=== PATIENT | male | born 1930 | race Caucasian/White ===

== ENCOUNTER 2016-10-05 12:01 | Emergency (ER) | payer MEDICARE, OTHER ==
[~2016-10-05 12:01] MED LIST: AMLO-61 PO; ASPI81TA85 PO; ATOR1TAB21 PO; BISO5TAB5 PO; JANU25TA PO; LATA5OPD OU; PANT40TA2 PO; SENN-23 PO; TORS20TA2 PO
[2016-10-05] MEDS ORDERED: OXYMETAZOLINE NASAL SPRAY (AFRIN) As Ordered ONE (12:53)
--- NOTE | 2016-10-05 14:48 | CR ---
DATE OF CONSULTATION: 10/05/2016 This is an 86-year-old patient consulted for epistaxis. He has been having issues with nosebleeds for sometime now. He has a known septal perforation that allows him to bleed from both sides of his nose anteriorly. He started bleeding this morning from both sides and was unable to stop it. He presented to the emergency room (ER) where attempts at Merocel packing bilaterally were unsuccessful. He has no history of hypertension. He is on medications for it and his blood pressure has been good. He does take aspirin everyday. PHYSICAL EXAMINATION: On examination, he is in no acute distress. He has bilateral Merocel packs in his nose which are removed. There appears to be some bleeding from the anterior right nostril on the lateral wall, just above the inferior turbinate attachment. First the nose was prepared by using Afrin as a decongestant and Afrin with lidocaine was used to create some anesthesia topically in the nose. All the clot was suctioned. There appeared to be some steady oozing from the right lateral nasal wall anteriorly. Silver nitrate was applied to this area. A Surgicel pack was placed there and this was held in place with a Merocel pack. Another Surgicel pack was turned into a wedge and placed in between the two to tighten up the packing in this area. This seemed to quell most of the bleeding. He did have some posterior oozing which was settling down. He was instructed to stay at bedrest for 24 hours. He will be seen back in the office in three days.
--- NOTE | 2016-10-05 14:49 | EDDOCDS ---
Nurse's Notes [facility] Name: Guilherme Macias Age: 86 yrs Sex: Male : 1930 Arrival Date: 10/05/2016 Time: 12:01 Bed I7 Private MD: Diagnosis: Epistaxis-right Presentation: 10/05 12:10 Presenting complaint: Patient states: pt reports onset of nose bleed at approx 1100 ead this morning, reports hx of nose bleeds. reports "I had a little itch and used a q-tip to touch it.". Adult Sepsis Screening: The patient does not have new or worsening altered mentation. Patient's respiratory rate is less than 22. Systolic blood pressure is greater than 100. Patient has a qSOFA score of 0- Negative Sepsis Screen. Suicide/Homicide risk assessment- the patient denies having any suicidal and/or homicidal ideations and does not present with any other emotional, behavioral or mental health complaints. Status: Patient is not a service cleaner or dependent. Transition of care: patient was not received from another setting of care. 12:10 Acuity: CHLOE Level 3 ead 12:10 Method Of Arrival: Walkin/Carried/Asstd ead Triage Assessment: 12:17 General: Appears in no apparent distress, comfortable, Behavior is appropriate for age, ead cooperative. Pain: Denies pain. Neurological: No deficits noted. EENT: Nares nose clamp in place. pt spitting blood in bag. . Respiratory: Airway is patent Respiratory effort is even, unlabored. Derm: Skin is pink, warm & dry. Historical: - Allergies: no known allergies; - Home Meds: 1. aspirin 81 mg Oral tab once daily 2. vitamin d 2000 IU daily 3. amlodipine-benazepril 10-20 mg oral cap once daily 4. pantoprazole 40 mg oral grps once daily 5. torsemide 20 mg oral tab once daily 6. bisoprolol fumarate 5 mg oral tab 0.5 tab once daily 7. lantaprost 0.005% eye drops nightly 8. proctosal as needed 9. Imodium A-D oral oral as needed 10. senecot-s nightly - PMHx: prostate cancer; jaw cancer; Kidney stones; Atrial Fib; - PSHx: Lithotripsy; Cholecystectomy; Right Knee Replacement; Kidney Stone Surgery; - Social history: Smoking status: Patient states former smoker of tobacco. No barriers to communication noted, The patient speaks fluent Mohawk, Speaks appropriately for age. - Family history: Not pertinent. - : The pt / caregiver states he / she is not on anticoagulants. Home medication list is obtained from the patient. - Exposure Risk Screening:: None identified. Screenin:25 Screening information is obtained from the patient. Fall risk: At risk due to age. dls Assistance ADL's: requires no assistance with activities of daily living. Abuse/DV Screen: The patient / caregiver reports he/she is: not in a situation that causes fear, pain or injury. Nutritional screening: No deficits noted. Advance Directives: Currently, there is no health care proxy. There is no active DNR order. There is no living will. There is no Power of Tower Operator. home support is adequate. Assessment: 13:23 General: First contact with pt who was moved to [facility] from [facility]. Epistaxis controlled with dls nasal clamp, provider inserted bilateral rapid rhino packings pt tolerated well.. 14:15 General: Appears bleeding had persisted despite packing, Dr Encarnacion at bedside and right [facility] nares again packed after silver nitrate. tolerated.. 14:45 General: Appears without active bleeding. reinforced bedrest/. receptive to discharge. [facility] Vital Signs: 12:01 BP 117 / 70; Pulse 96; Resp 18; Temp 96.7(T); Pulse Ox 89% ; Weight 91.63 kg (R); lr2 Height 6 ft. 0 in. (182.88 cm) (R); 13:27 BP 145 / 64; Pulse 92; Resp 20; Temp 96.8; Pulse Ox 92% ; Pain 0/10; jam1 14:45 BP 137 / 89; Pulse 90; Resp 16; Temp 97.3; jmk 12:01 Body Mass Index 27.40 (91.63 kg, 182.88 cm) lr2 Vitals: 12:01 Log In Time: October 05, 2016 at 12:01. lr2 ED Course: 12:01 Patient visited by Irene Fischer. lr2 12:01 Patient moved to Waiting lr2 12:04 Patient moved to Pre E lr2 12:11 Triage Initiated ead 12:24 Patient moved to Triage 2 ar3 12:42 [facility] cc10 12:42 Emmett Olson MD is Attending Physician. cc10 12:42 Patient visited by Eloy Rosario PA-C. cc10 12:42 Patient visited by Eloy Rosario PA-C. cc10 12:59 Patient moved to [facility] 13:11 Patient visited by Eloy Rosario PA-C. cc10 13:25 The patient / caregiver is instructed regarding the plan of care and ED course. dls 14:13 Lenny Encarnacion is Referral Physician. cc10 14:16 Patient visited by Erik Chung,MADYSON. k 14:45 No IV's were initiated during this patient's visit. No procedures done that require jmk assistance. Administered Medications: 12:56 Drug: Oxymetazoline 2 sprays [oxymetazoline 0.05 % nasal spray (2 sprays)] Route: dsf Intranasal; Site: both nares; Order Results: There are currently no results for this order. Outcome: 14:13 Discharge ordered by Provider. cc10 14:45 Discharge Assessment: Patient awake, alert and oriented x 3. No cognitive and/or jmk functional deficits noted. Patient verbalized understanding of disposition instructions. patient administered narcotics - no. The following High Risk Discharge criteria are identified: None. Condition: good. Discharge instructions given to patient, Instructed on discharge instructions, follow up and referral plans. medication usage, Demonstrated understanding of instructions, medications, Pt was receptive of discharge instructions/ teaching. No special radiology studies were completed. Property :Personal belongings accompany Pt. 14:47 Patient left the ED. jmk Signatures: Erik Chung,RN Iman Maya RN Genesis Bhakta, AGRICULTURE INSTRUCTOR AGRICULTURE INSTRUCTOR jam1 Jacki Upton, AGRICULTURE INSTRUCTOR AGRICULTURE INSTRUCTOR ar3 Rosibel AyalaRN Benita DowRN Eloy Freedman PA-C PA-C cc Irene Fischer lr2 MTDD
--- NOTE | 2016-10-05 14:49 | EDDOCDS ---
Physician Documentation [facility] Name: Guilherme Macias Age: 86 yrs Sex: Male : 1930 Arrival Date: 10/05/2016 Time: 12:01 Bed I Private MD: Disposition: 10/05/16 14:13 Discharged to Home/Self Care. Impression: Epistaxis - right. - Condition is Stable. - Discharge Instructions: Nosebleed. - Medication Reconciliation form. - Follow up: Lenny Encarnacion; When: 2 - 3 days; Reason: Wound/Symptom Recheck, Recheck today's complaints, Continuance of care, To establish care. - Problem is new. - Symptoms have improved. - Notes: Strict bedrest. Follow up with the ENT doctor on for removal and recheck. Historical: - Allergies: no known allergies; - Home Meds: 1. aspirin 81 mg Oral tab once daily 2. vitamin d 2000 IU daily 3. amlodipine-benazepril 10-20 mg oral cap once daily 4. pantoprazole 40 mg oral grps once daily 5. torsemide 20 mg oral tab once daily 6. bisoprolol fumarate 5 mg oral tab 0.5 tab once daily 7. lantaprost 0.005% eye drops nightly 8. proctosal as needed 9. Imodium A-D oral oral as needed 10. senecot-s nightly - PMHx: prostate cancer; jaw cancer; Kidney stones; Atrial Fib; - PSHx: Lithotripsy; Cholecystectomy; Right Knee Replacement; Kidney Stone Surgery; - Social history: Smoking status: Patient states former smoker of tobacco. No barriers to communication noted, The patient speaks fluent Estonian, Speaks appropriately for age. - Family history: Not pertinent. - : The pt / caregiver states he / she is not on anticoagulants. Home medication list is obtained from the patient. - Exposure Risk Screening:: None identified. Vital Signs: 10/05 12:01 BP 117 / 70; Pulse 96; Resp 18; Temp 96.7(T); Pulse Ox 89% ; Weight 91.63 kg / 202.01 lr2 lbs (R); Height 6 ft. 0 in. (182.88 cm) (R); 13:27 BP 145 / 64; Pulse 92; Resp 20; Temp 96.8; Pulse Ox 92% ; Pain 0/10; jam1 14:45 BP 137 / 89; Pulse 90; Resp 16; Temp 97.3; jmk 12:01 Body Mass Index 27.40 (91.63 kg, 182.88 cm) lr2 Procedures: 13:11 Epistaxis Treatment: Copious amount of bleeding noted from both nares. Treated using cc10 direct pressure, nasal clamp, Oxymetazoline sprays, anterior packing, with a Rapid Rhino 5.5cm, Bleeding continues. MDM: 12:46 Financial registration complete. lg 12:52 Oxymetazoline [place] 0.05 % 2 sprays Intranasal once ordered. cc10 Administered Medications: 12:56 Drug: Oxymetazoline 2 sprays [oxymetazoline 0.05 % nasal spray (2 sprays)] Route: dsf Intranasal; Site: both nares; Signatures: Erik Chung,RN RN Marcelino Parks, Isaias Reg lg Benita John RN RN ead Coniski, Colin, PA-C PA-Richy cc10 Rosibel Ayala RN dsf MTDD
--- NOTE | 2016-10-07 15:47 | EDDOCDS ---
Physician Documentation [facility] Name: Guilherme Macias Age: 86 yrs Sex: Male : 1930 Arrival Date: 10/05/2016 Time: 12:01 Bed I Private MD: Disposition: 10/05/16 14:13 Discharged to Home/Self Care. Impression: Epistaxis - right. - Condition is Stable. - Discharge Instructions: Nosebleed. - Medication Reconciliation form. - Follow up: Lenny Encarnacion; When: 2 - 3 days; Reason: Wound/Symptom Recheck, Recheck today's complaints, Continuance of care, To establish care. - Problem is new. - Symptoms have improved. - Notes: Strict bedrest. Follow up with the ENT doctor on for removal and recheck. Historical: - Allergies: no known allergies; - Home Meds: 1. aspirin 81 mg Oral tab once daily 2. vitamin d 2000 IU daily 3. amlodipine-benazepril 10-20 mg oral cap once daily 4. pantoprazole 40 mg oral grps once daily 5. torsemide 20 mg oral tab once daily 6. bisoprolol fumarate 5 mg oral tab 0.5 tab once daily 7. lantaprost 0.005% eye drops nightly 8. proctosal as needed 9. Imodium A-D oral oral as needed 10. senecot-s nightly - PMHx: prostate cancer; jaw cancer; Kidney stones; Atrial Fib; - PSHx: Lithotripsy; Cholecystectomy; Right Knee Replacement; Kidney Stone Surgery; - Social history: Smoking status: Patient states former smoker of tobacco. No barriers to communication noted, The patient speaks fluent Telugu, Speaks appropriately for age. - Family history: Not pertinent. - : The pt / caregiver states he / she is not on anticoagulants. Home medication list is obtained from the patient. - Exposure Risk Screening:: None identified. Vital Signs: 10/05 12:01 BP 117 / 70; Pulse 96; Resp 18; Temp 96.7(T); Pulse Ox 89% ; Weight 91.63 kg / 202.01 lr2 lbs (R); Height 6 ft. 0 in. (182.88 cm) (R); 13:27 BP 145 / 64; Pulse 92; Resp 20; Temp 96.8; Pulse Ox 92% ; Pain 0/10; jam1 14:45 BP 137 / 89; Pulse 90; Resp 16; Temp 97.3; jmk 12:01 Body Mass Index 27.40 (91.63 kg, 182.88 cm) lr2 Procedures: 13:11 Epistaxis Treatment: Copious amount of bleeding noted from both nares. Treated using cc10 direct pressure, nasal clamp, Oxymetazoline sprays, anterior packing, with a Rapid Rhino 5.5cm, Bleeding continues. MDM: 12:46 Financial registration complete. lg 12:52 Oxymetazoline [place] 0.05 % 2 sprays Intranasal once ordered. cc10 Administered Medications: 12:56 Drug: Oxymetazoline 2 sprays [oxymetazoline 0.05 % nasal spray (2 sprays)] Route: dsf Intranasal; Site: both nares; Signatures: Erik Chung,RN RN Marcelino Parks, Isaias Reg lg Benita John RN RN ead Coniski, Colin, PA-C PAFred cc10 Rosibel Ayala RN dsf Chart Complete MTDD
--- NOTE | 2016-10-07 15:47 | EDDOCDS ---
Physician Documentation [facility] Name: Guilherme Macias Age: 86 yrs Sex: Male : 1930 Arrival Date: 10/05/2016 Time: 12:01 Bed I Private MD: Disposition: 10/05/16 14:13 Discharged to Home/Self Care. Impression: Epistaxis - right. - Condition is Stable. - Discharge Instructions: Nosebleed. - Medication Reconciliation form. - Follow up: Lenny Encarnacion; When: 2 - 3 days; Reason: Wound/Symptom Recheck, Recheck today's complaints, Continuance of care, To establish care. - Problem is new. - Symptoms have improved. - Notes: Strict bedrest. Follow up with the ENT doctor on for removal and recheck. Historical: - Allergies: no known allergies; - Home Meds: 1. aspirin 81 mg Oral tab once daily 2. vitamin d 2000 IU daily 3. amlodipine-benazepril 10-20 mg oral cap once daily 4. pantoprazole 40 mg oral grps once daily 5. torsemide 20 mg oral tab once daily 6. bisoprolol fumarate 5 mg oral tab 0.5 tab once daily 7. lantaprost 0.005% eye drops nightly 8. proctosal as needed 9. Imodium A-D oral oral as needed 10. senecot-s nightly - PMHx: prostate cancer; jaw cancer; Kidney stones; Atrial Fib; - PSHx: Lithotripsy; Cholecystectomy; Right Knee Replacement; Kidney Stone Surgery; - Social history: Smoking status: Patient states former smoker of tobacco. No barriers to communication noted, The patient speaks fluent Mohawk, Speaks appropriately for age. - Family history: Not pertinent. - : The pt / caregiver states he / she is not on anticoagulants. Home medication list is obtained from the patient. - Exposure Risk Screening:: None identified. Vital Signs: 10/05 12:01 BP 117 / 70; Pulse 96; Resp 18; Temp 96.7(T); Pulse Ox 89% ; Weight 91.63 kg / 202.01 lr2 lbs (R); Height 6 ft. 0 in. (182.88 cm) (R); 13:27 BP 145 / 64; Pulse 92; Resp 20; Temp 96.8; Pulse Ox 92% ; Pain 0/10; jam1 14:45 BP 137 / 89; Pulse 90; Resp 16; Temp 97.3; jmk 12:01 Body Mass Index 27.40 (91.63 kg, 182.88 cm) lr2 Procedures: 13:11 Epistaxis Treatment: Copious amount of bleeding noted from both nares. Treated using cc10 direct pressure, nasal clamp, Oxymetazoline sprays, anterior packing, with a Rapid Rhino 5.5cm, Bleeding continues. MDM: 12:46 Financial registration complete. lg 12:52 Oxymetazoline [place] 0.05 % 2 sprays Intranasal once ordered. cc10 Administered Medications: 12:56 Drug: Oxymetazoline 2 sprays [oxymetazoline 0.05 % nasal spray (2 sprays)] Route: dsf Intranasal; Site: both nares; Signatures: Erik Chung,RN RN Marcelino Parks, Isaias Reg lg Benita John RN RN ead Coniski, Colin, PA-C PAFred cc10 Rosibel Ayala RN dsf Chart Complete MTDD
--- NOTE | 2016-10-07 15:49 | EDDOCDS ---
Nurse's Notes [facility] Name: Guilherme Macias Age: 86 yrs Sex: Male : 1930 Arrival Date: 10/05/2016 Time: 12:01 Bed I7 Private MD: Diagnosis: Epistaxis-right Presentation: 10/05 12:10 Presenting complaint: Patient states: pt reports onset of nose bleed at approx 1100 ead this morning, reports hx of nose bleeds. reports "I had a little itch and used a q-tip to touch it.". Adult Sepsis Screening: The patient does not have new or worsening altered mentation. Patient's respiratory rate is less than 22. Systolic blood pressure is greater than 100. Patient has a qSOFA score of 0- Negative Sepsis Screen. Suicide/Homicide risk assessment- the patient denies having any suicidal and/or homicidal ideations and does not present with any other emotional, behavioral or mental health complaints. Status: Patient is not a service center appraiser or dependent. Transition of care: patient was not received from another setting of care. 12:10 Acuity: CHLOE Level 3 ead 12:10 Method Of Arrival: Walkin/Carried/Asstd ead Triage Assessment: 12:17 General: Appears in no apparent distress, comfortable, Behavior is appropriate for age, ead cooperative. Pain: Denies pain. Neurological: No deficits noted. EENT: Nares nose clamp in place. pt spitting blood in bag. . Respiratory: Airway is patent Respiratory effort is even, unlabored. Derm: Skin is pink, warm & dry. Historical: - Allergies: no known allergies; - Home Meds: 1. aspirin 81 mg Oral tab once daily 2. vitamin d 2000 IU daily 3. amlodipine-benazepril 10-20 mg oral cap once daily 4. pantoprazole 40 mg oral grps once daily 5. torsemide 20 mg oral tab once daily 6. bisoprolol fumarate 5 mg oral tab 0.5 tab once daily 7. lantaprost 0.005% eye drops nightly 8. proctosal as needed 9. Imodium A-D oral oral as needed 10. senecot-s nightly - PMHx: prostate cancer; jaw cancer; Kidney stones; Atrial Fib; - PSHx: Lithotripsy; Cholecystectomy; Right Knee Replacement; Kidney Stone Surgery; - Social history: Smoking status: Patient states former smoker of tobacco. No barriers to communication noted, The patient speaks fluent Belarusian, Speaks appropriately for age. - Family history: Not pertinent. - : The pt / caregiver states he / she is not on anticoagulants. Home medication list is obtained from the patient. - Exposure Risk Screening:: None identified. Screenin:25 Screening information is obtained from the patient. Fall risk: At risk due to age. dls Assistance ADL's: requires no assistance with activities of daily living. Abuse/DV Screen: The patient / caregiver reports he/she is: not in a situation that causes fear, pain or injury. Nutritional screening: No deficits noted. Advance Directives: Currently, there is no health care proxy. There is no active DNR order. There is no living will. There is no Power of Supervisor Coffee. home support is adequate. Assessment: 13:23 General: First contact with pt who was moved to [facility] from [facility]. Epistaxis controlled with dls nasal clamp, provider inserted bilateral rapid rhino packings pt tolerated well.. 14:15 General: Appears bleeding had persisted despite packing, Dr Encarnacion at bedside and right [facility] nares again packed after silver nitrate. tolerated.. 14:45 General: Appears without active bleeding. reinforced bedrest/. receptive to discharge. [facility] Vital Signs: 12:01 BP 117 / 70; Pulse 96; Resp 18; Temp 96.7(T); Pulse Ox 89% ; Weight 91.63 kg (R); lr2 Height 6 ft. 0 in. (182.88 cm) (R); 13:27 BP 145 / 64; Pulse 92; Resp 20; Temp 96.8; Pulse Ox 92% ; Pain 0/10; jam1 14:45 BP 137 / 89; Pulse 90; Resp 16; Temp 97.3; jmk 12:01 Body Mass Index 27.40 (91.63 kg, 182.88 cm) lr2 Vitals: 12:01 Log In Time: October 05, 2016 at 12:01. lr2 ED Course: 12:01 Patient visited by Irene Fischer. lr2 12:01 Patient moved to Waiting lr2 12:04 Patient moved to Pre E lr2 12:11 Triage Initiated ead 12:24 Patient moved to Triage 2 ar3 12:42 Eloy [facility]-C [facility] cc10 12:42 Emmett Olson MD is Attending Physician. cc10 12:42 Patient visited by Eloy Rosario PA-C. cc10 12:42 Patient visited by Eloy Rosario PA-C. cc10 12:59 Patient moved to [facility] 13:11 Patient visited by Eloy Rosario PA-C. cc10 13:25 The patient / caregiver is instructed regarding the plan of care and ED course. dls 14:13 Lenny Encarnacion is Referral Physician. cc10 14:16 Patient visited by Erik Chung,MADYSON. k 14:45 No IV's were initiated during this patient's visit. No procedures done that require jmk assistance. Administered Medications: 12:56 Drug: Oxymetazoline 2 sprays [oxymetazoline 0.05 % nasal spray (2 sprays)] Route: dsf Intranasal; Site: both nares; Order Results: There are currently no results for this order. Outcome: 14:13 Discharge ordered by Provider. cc10 14:45 Discharge Assessment: Patient awake, alert and oriented x 3. No cognitive and/or jmk functional deficits noted. Patient verbalized understanding of disposition instructions. patient administered narcotics - no. The following High Risk Discharge criteria are identified: None. Condition: good. Discharge instructions given to patient, Instructed on discharge instructions, follow up and referral plans. medication usage, Demonstrated understanding of instructions, medications, Pt was receptive of discharge instructions/ teaching. No special radiology studies were completed. Property :Personal belongings accompany Pt. 14:47 Patient left the ED. jmk Signatures: Erik Chung,RN Iman Maya RN Genesis Bhakta, HOMEOWNER ASSOCIATION MANAGER HOMEOWNER ASSOCIATION MANAGER jam1 Jacki Upton, HOMEOWNER ASSOCIATION MANAGER HOMEOWNER ASSOCIATION MANAGER ar3 Rosibel AyalaRN Benita DowRN Eloy Freedman PA-C PA-C cc Irene Fischer lr2 Chart Complete MTDD
== END 2016-10-05 14:47 | disposition home or self-care (01) ==
LOC: M ED 12:01
DX: R04.0 Epistaxis (principal); C61 Malignant neoplasm of prostate; C76.0 Malignant neoplasm of head, face and neck; I48.91 Unspecified atrial fibrillation; Z96.651 Presence of right artificial knee joint; Z87.891 Personal history of nicotine dependence; Z79.82 Long term (current) use of aspirin; Z79.899 Other long term (current) drug therapy

== ENCOUNTER → 2017-01-01 | Outpatient (REF) | payer MEDICARE, OTHER | LOC: M LAB REF 16:23 | PROVIDERS: ATTEND Nurse Practitioner Adult Health | DX: E21.0 Primary hyperparathyroidism (principal) ==

== ENCOUNTER 2017-08-12 11:50 | Inpatient (IN) | payer MEDICARE, OTHER ==
[2017-08-12 12:20] LABS: BASO # 0.1 10^3/uL (0.0-0.2); BASO % 0.2 % (0.0-1.0); HEMATOCRIT 33.7 % (42.0-52.0); HEMOGLOBIN 11.4 g/dl (14.0-18.0); IMMATURE GRANULOCYTE # 0.4 10^3/uL (0-0); IMMATURE GRANULOCYTE % 1.1 % (0-0); LYMPH # 0.6 10^3/uL (1.5-4.5); LYMPH % 1.8 % (24.0-44.0); MEAN CORPUSCULAR HEMOGLOBIN 32.9 pg (27.0-33.0); MEAN CORPUSCULAR HGB CONC 33.8 g/dl (32.0-36.5); MEAN CORPUSCULAR VOLUME 97.1 fl (80.0-96.0); MONO % 7.5 % (0.0-5.0); NEUTROPHILS % 89.4 % (36.0-66.0); PLATELET COUNT, AUTOMATED 250 10^3/uL (150-450); RED BLOOD COUNT 3.47 10^6/uL (4.30-6.10); RED CELL DISTRIBUTION WIDTH 13.6 % (11.5-14.5); VENOUS BASE EXCESS -1.5 (-2.0-2.0); VENOUS HCO3 21.7 MEQ/L (23.0-27.0); VENOUS O2 SATURATION 95.3 % (60.0-80.0); VENOUS PARTIAL PRESSURE O2 75.9 mmHg (30.0-50.0); VENOUS PH 7.449 UNITS (7.330-7.430); VENOUS STANDARD HCO3 23.1 MEQ/L; VENOUS TOTAL CO2 22.7 MEQ/L (24.0-28.0)
[2017-08-12 12:35] LABS: MONO # 2.5 10^3/uL (0.0-0.8); NEUTROPHILS # 29.4 10^3/uL (1.8-7.7); POS COUNT POS FLAG; POSITIVE DIFF POS FLAG; WHITE BLOOD COUNT 32.9 10^3/uL (4.0-10.0)
[2017-08-12 12:37] LABS: AMMONIA 18 uMOL/L (<32)
[2017-08-12 13:00] LABS: OSMOLALITY SERUM 308 MOSM/KG (280-301)
[2017-08-12 13:17] LABS: ALBUMIN 2.3 GM/DL (3.2-5.2); ALBUMIN/GLOBULIN RATIO 0.62 (1.00-1.93); ALKALINE PHOSPHATASE 94 U/L (45-117); ALT/SGPT 19 U/L (12-78); ANION GAP 11 MEQ/L (8-16); AST/SGOT 14 U/L (7-37); BILIRUBIN,DIRECT 0.1 MG/DL (0.0-0.2); BILIRUBIN,TOTAL 0.5 MG/DL (0.2-1.0); BLOOD UREA NITROGEN 56 MG/DL (7-18); CALCIUM LEVEL 9.8 MG/DL (8.8-10.2); CARBON DIOXIDE LEVEL 25 MEQ/L (21-32); CHLORIDE LEVEL 96 MEQ/L (98-107); CPK CREATINE PHOSPHOKINASE 17 U/L (39-308); CREATININE FOR GFR 1.88 MG/DL (0.70-1.30); GLOMERULAR FILTRATION RATE 36.4 (>35); GLUCOSE, FASTING 370 MG/DL (83-110); POTASSIUM SERUM 4.7 MEQ/L (3.5-5.1); SODIUM LEVEL 132 MEQ/L (136-145); TROPONIN I 0.08 NG/ML (< 0.10)
[2017-08-12] MEDS: MOXIFLOXACIN HCL 400 MG in APPROPRIATE DILUENT 1 EA IV (13:17)
[2017-08-12] MEDS: ONDANSETRON 4MG/2ML VIAL (J2405) IV (13:17)
[2017-08-12 13:23] LABS: MB/CK RELATIVE INDEX 5.88 (< OR =4)
[2017-08-12 13:37] LABS: SALICYLATE LEVEL < 1.7 MG/DL (5.0-30.0)
[2017-08-12 13:37] LABS: ACETAMINOPHEN LEVEL < 2.0 UG/ML (10.0-30.0)
[2017-08-12] MEDS: NS 1,000 ML IV ×3 (14:26→17:30)
[2017-08-12] MEDS ORDERED: IPRATROPIUM 0.5MG/ALBUTEROL 2.5MG INH SOL UD 3ML (DUONEB)(J7620) NEB (16:00)
[2017-08-12 16:40] LABS: LACTIC ACID SEPSIS PROTOCOL 5.1 MMOL/L (0.4-2.0)
[2017-08-12 16:50] LABS: APPEARANCE, URINE CLOUDY (CLEAR); BACTERIA, URINE AUTO 3+ (NEGATIVE); BILIRUBIN, URINE AUTO NEGATIVE (NEGATIVE); BLOOD, URINE BLOOD 3+ (NEGATIVE); COLOR, URINE YELLOW (YELLOW); GLUCOSE, URINE (UA) AUTO 1+ mg/dL (NEGATIVE); KETONE, URINE AUTO NEGATIVE (NEGATIVE); LEUKOCYTE ESTERASE, URINE AUTO 3+ (NEGATIVE); NITRITE, URINE AUTO POSITIVE (NEGATIVE); PROTEIN, URINE AUTO 2+ mg/dL (NEGATIVE); RBC, URINE AUTO 80 /HPF (0-3); SPECIFIC GRAVITY URINE AUTO 1.011 (1.002-1.035); SQUAMOUS EPITHELIAL CELL UR AU 0 /HPF (0-6); UROBILINOGEN, URINE AUTO 0.2 mg/dL (0.0-2.0); WBC, URINE AUTO TNTC /HPF (0-3)
[2017-08-12] MEDS ORDERED: PIPERACILLIN/TAZOBACTAM SOD 3.375 GM in APPROPRIATE DILUENT 1 EA IV (17:00)
[2017-08-12] MEDS: VANCOMYCIN HCL 1,000 MG, VIAL MATE ADAPTER 1 EACH in D5W 250 ML IV (18:37)
[2017-08-12] MEDS ORDERED: PIPERACILLIN/TAZOBACTAM SOD 2.25 GM in APPROPRIATE DILUENT 1 EA IV (20:00)
[2017-08-12 20:19] LABS: CPK CREATINE PHOSPHOKINASE 18 U/L (39-308); MB/CK RELATIVE INDEX 5.55 (< OR =4)
[2017-08-12 21:00] LABS: REASON FOR REVIEW COMPREHENSIVE REVIEW; SLIDE REVIEW Report; SOURCE PERIPHERAL SMEAR
[2017-08-12] MEDS ORDERED: APIXABAN 5 MG TAB (ELIQUIS) PEG (21:00)
[2017-08-12] MEDS ORDERED: APIXABAN 5 MG TAB (ELIQUIS) PO (21:00)
[2017-08-12] MEDS: LATANOPROST 0.005% OPHTH SOLN 2.5 ML OU (21:00)
[2017-08-12] MEDS: LACTOBACILLUS ACIDOPHILUS CAP (BACID) PEG (21:00)
[2017-08-12] MEDS: VANCOMYCIN HCL 500 MG in D5W MINI-BAG PLUS 100 ML IV (21:06)
[2017-08-12] MEDS: IPRATROPIUM 0.5MG/ALBUTEROL 2.5MG INH SOL UD 3ML (DUONEB)(J7620) NEB (23:40)
[2017-08-13] MEDS: APIXABAN 2.5 MG TAB (ELIQUIS) PEG ×3 (00:36→21:26)
[2017-08-13] MEDS: PIPERACILLIN/TAZOBACTAM SOD 2.25 GM in APPROPRIATE DILUENT 1 EA IV ×5 (01:38→23:29)
[2017-08-13] MEDS: IPRATROPIUM 0.5MG/ALBUTEROL 2.5MG INH SOL UD 3ML (DUONEB)(J7620) NEB ×4 (02:00→20:52)
[2017-08-13 02:04] LABS: CPK CREATINE PHOSPHOKINASE 22 U/L (39-308); MB/CK RELATIVE INDEX 4.54 (< OR =4)
[2017-08-13] MEDS: NS 1,000 ML IV ×3 (03:56→21:27)
[2017-08-13 05:47] LABS: BASO % 0.2 % (0.0-1.0); EOS % 0.1 % (0.0-3.0); HEMATOCRIT 29.9 % (42.0-52.0); HEMOGLOBIN 9.9 g/dl (14.0-18.0); IMMATURE GRANULOCYTE # 0.1 10^3/uL (0-0); IMMATURE GRANULOCYTE % 0.7 % (0-0); LYMPH # 0.6 10^3/uL (1.5-4.5); LYMPH % 3.4 % (24.0-44.0); MEAN CORPUSCULAR HEMOGLOBIN 32.2 pg (27.0-33.0); MEAN CORPUSCULAR HGB CONC 33.1 g/dl (32.0-36.5); MEAN CORPUSCULAR VOLUME 97.4 fl (80.0-96.0); MONO # 1.9 10^3/uL (0.0-0.8); MONO % 10.4 % (0.0-5.0); NEUTROPHILS % 85.2 % (36.0-66.0); PLATELET COUNT, AUTOMATED 222 10^3/uL (150-450); RED BLOOD COUNT 3.07 10^6/uL (4.30-6.10); RED CELL DISTRIBUTION WIDTH 13.5 % (11.5-14.5); WHITE BLOOD COUNT 18.7 10^3/uL (4.0-10.0)
[2017-08-13] MEDS: LEVOTHYROXINE 50MCG TABLET (0.05MG) PEG (06:03)
[2017-08-13 06:22] LABS: ALBUMIN 2.1 GM/DL (3.2-5.2); ALBUMIN/GLOBULIN RATIO 0.68 (1.00-1.93); ALKALINE PHOSPHATASE 89 U/L (45-117); ALT/SGPT 18 U/L (12-78); ANION GAP 8 MEQ/L (8-16); AST/SGOT 15 U/L (7-37); BILIRUBIN,TOTAL 0.2 MG/DL (0.2-1.0); BLOOD UREA NITROGEN 57 MG/DL (7-18); CALCIUM LEVEL 9.3 MG/DL (8.8-10.2); CARBON DIOXIDE LEVEL 26 MEQ/L (21-32); CHLORIDE LEVEL 106 MEQ/L (98-107); CREATININE FOR GFR 1.54 MG/DL (0.70-1.30); FREE THYROXINE INDEX 2.3 % (1.4-3.8); GLOMERULAR FILTRATION RATE 45.8 (>35); GLUCOSE, FASTING 261 MG/DL (83-110); MAGNESIUM LEVEL 2.1 MG/DL (1.8-2.4); POTASSIUM SERUM 4.2 MEQ/L (3.5-5.1); SODIUM LEVEL 140 MEQ/L (136-145); T UPTAKE 39 % (33-40); THYROXINE (T4) 5.8 UG/DL (4.5-12.0); TOTAL PROTEIN 5.2 GM/DL (6.4-8.2)
[2017-08-13] MEDS: TIOTROPIUM INHALER/CAPSULE (SPIRIVA) INH ×2 (08:00→09:00)
[2017-08-13 08:28] LABS: ERYTHROCYTE SEDIMENTATION RATE 70 mm/hr (0-30)
[2017-08-13] MEDS ORDERED: LEVOTHYROXINE 50MCG TABLET (0.05MG) PO (09:00)
[2017-08-13] MEDS ORDERED: SENNA 8.6 MG TAB (SENOKOT) PEG (09:00)
[2017-08-13] MEDS: LACTOBACILLUS ACIDOPHILUS CAP (BACID) PEG ×3 (09:25→21:26)
[2017-08-13] MEDS: FLUoxetine 20 MG CAP PEG (09:25)
[2017-08-13] MEDS: METOPROLOL SUCC *XL* 25MG TAB (TopROL *XL*) PO (09:29)
[2017-08-13 10:52] LABS: CPK CREATINE PHOSPHOKINASE 25 U/L (39-308)
[2017-08-13] MEDS: VANCOMYCIN HCL 1,000 MG, VIAL MATE ADAPTER 1 EACH in D5W 250 ML IV (17:55)
[2017-08-13] MEDS: SENNA 8.6 MG TAB (SENOKOT) PEG (21:26)
[2017-08-13] MEDS: LATANOPROST 0.005% OPHTH SOLN 2.5 ML OU (21:27)
[2017-08-14] MEDS: IPRATROPIUM 0.5MG/ALBUTEROL 2.5MG INH SOL UD 3ML (DUONEB)(J7620) NEB ×5 (01:23→21:24)
[2017-08-14 04:07] LABS: BASO % 0.3 % (0.0-1.0); EOS # 0.1 10^3/uL (0.0-0.50); EOS % 0.9 % (0.0-3.0); HEMATOCRIT 28.8 % (42.0-52.0); HEMOGLOBIN 9.5 g/dl (14.0-18.0); IMMATURE GRANULOCYTE # 0.1 10^3/uL (0-0); IMMATURE GRANULOCYTE % 0.8 % (0-0); LYMPH # 0.7 10^3/uL (1.5-4.5); LYMPH % 4.7 % (24.0-44.0); MEAN CORPUSCULAR HEMOGLOBIN 32.4 pg (27.0-33.0); MEAN CORPUSCULAR VOLUME 98.3 fl (80.0-96.0); MONO # 1.8 10^3/uL (0.0-0.8); MONO % 12.3 % (0.0-5.0); NEUTROPHILS # 12.1 10^3/uL (1.8-7.7); PLATELET COUNT, AUTOMATED 201 10^3/uL (150-450); RED BLOOD COUNT 2.93 10^6/uL (4.30-6.10); RED CELL DISTRIBUTION WIDTH 13.4 % (11.5-14.5)
[2017-08-14 04:34] LABS: ALBUMIN/GLOBULIN RATIO 0.51 (1.00-1.93); ALKALINE PHOSPHATASE 89 U/L (45-117); ALT/SGPT 19 U/L (12-78); ANION GAP 6 MEQ/L (8-16); AST/SGOT 16 U/L (7-37); BILIRUBIN,TOTAL 0.2 MG/DL (0.2-1.0); BLOOD UREA NITROGEN 48 MG/DL (7-18); CALCIUM LEVEL 9.8 MG/DL (8.8-10.2); CARBON DIOXIDE LEVEL 27 MEQ/L (21-32); CHLORIDE LEVEL 107 MEQ/L (98-107); CREATININE FOR GFR 1.12 MG/DL (0.70-1.30); GLOMERULAR FILTRATION RATE > 60.0 (>35); GLUCOSE, FASTING 194 MG/DL (83-110); POTASSIUM SERUM 3.9 MEQ/L (3.5-5.1); SODIUM LEVEL 140 MEQ/L (136-145); TOTAL PROTEIN 5.9 GM/DL (6.4-8.2)
[2017-08-14] MEDS: PIPERACILLIN/TAZOBACTAM SOD 2.25 GM in APPROPRIATE DILUENT 1 EA IV ×3 (05:13→18:00)
[2017-08-14] MEDS: LEVOTHYROXINE 50MCG TABLET (0.05MG) PEG (05:13)
[2017-08-14] MEDS: TIOTROPIUM INHALER/CAPSULE (SPIRIVA) INH (08:27)
[2017-08-14] MEDS: METOPROLOL SUCC *XL* 25MG TAB (TopROL *XL*) PO (09:00)
[2017-08-14] MEDS: LACTOBACILLUS ACIDOPHILUS CAP (BACID) PEG ×3 (10:06→22:10)
[2017-08-14] MEDS: APIXABAN 2.5 MG TAB (ELIQUIS) PEG ×2 (10:07→22:10)
[2017-08-14] MEDS: FLUoxetine 20 MG CAP PEG (10:07)
[2017-08-14] MEDS: VANCOMYCIN HCL 1,000 MG, VIAL MATE ADAPTER 1 EACH in D5W 250 ML IV (18:25)
[2017-08-14] MEDS: FUROSEMIDE 20 MG/2 ML VIAL (J1940) IV (22:10)
[2017-08-15] MEDS: LATANOPROST 0.005% OPHTH SOLN 2.5 ML OU ×2 (00:27→21:36)
[2017-08-15] MEDS: PIPERACILLIN/TAZOBACTAM SOD 2.25 GM in APPROPRIATE DILUENT 1 EA IV ×2 (00:27→05:38)
[2017-08-15] MEDS: FUROSEMIDE 20 MG/2 ML VIAL (J1940) IV (01:19)
[2017-08-15] MEDS: IPRATROPIUM 0.5MG/ALBUTEROL 2.5MG INH SOL UD 3ML (DUONEB)(J7620) NEB ×4 (02:21→20:34)
[2017-08-15 05:34] LABS: BASO % 0.3 % (0.0-1.0); EOS # 0.1 10^3/uL (0.0-0.50); EOS % 0.4 % (0.0-3.0); HEMATOCRIT 30.3 % (42.0-52.0); HEMOGLOBIN 9.8 g/dl (14.0-18.0); IMMATURE GRANULOCYTE # 0.1 10^3/uL (0-0); IMMATURE GRANULOCYTE % 0.8 % (0-0); LYMPH # 0.6 10^3/uL (1.5-4.5); LYMPH % 3.9 % (24.0-44.0); MEAN CORPUSCULAR HGB CONC 32.3 g/dl (32.0-36.5); MONO # 1.4 10^3/uL (0.0-0.8); MONO % 10.1 % (0.0-5.0); NEUTROPHILS % 84.5 % (36.0-66.0); PLATELET COUNT, AUTOMATED 223 10^3/uL (150-450); RED BLOOD COUNT 3.06 10^6/uL (4.30-6.10); RED CELL DISTRIBUTION WIDTH 13.5 % (11.5-14.5); WHITE BLOOD COUNT 14.2 10^3/uL (4.0-10.0)
[2017-08-15] MEDS: LEVOTHYROXINE 50MCG TABLET (0.05MG) PEG (05:38)
[2017-08-15 05:50] LABS: ALBUMIN 2.1 GM/DL (3.2-5.2); ALKALINE PHOSPHATASE 97 U/L (45-117); ALT/SGPT 21 U/L (12-78); ANION GAP 9 MEQ/L (8-16); AST/SGOT 22 U/L (7-37); BILIRUBIN,TOTAL 0.4 MG/DL (0.2-1.0); BLOOD UREA NITROGEN 38 MG/DL (7-18); CALCIUM LEVEL 9.5 MG/DL (8.8-10.2); CARBON DIOXIDE LEVEL 26 MEQ/L (21-32); CHLORIDE LEVEL 106 MEQ/L (98-107); CREATININE FOR GFR 0.99 MG/DL (0.70-1.30); GLOMERULAR FILTRATION RATE > 60.0 (>35); GLUCOSE, FASTING 229 MG/DL (83-110); POTASSIUM SERUM 3.6 MEQ/L (3.5-5.1); SODIUM LEVEL 141 MEQ/L (136-145); TOTAL PROTEIN 6.3 GM/DL (6.4-8.2)
[2017-08-15] MEDS: TIOTROPIUM INHALER/CAPSULE (SPIRIVA) INH (09:00)
[2017-08-15] MEDS: FLUoxetine 20 MG CAP PEG (09:00)
[2017-08-15] MEDS: LACTOBACILLUS ACIDOPHILUS CAP (BACID) PEG ×3 (09:31→21:37)
[2017-08-15] MEDS: TORSEMIDE 20 MG TAB PO (09:32)
[2017-08-15] MEDS: METOPROLOL SUCC *XL* 25MG TAB (TopROL *XL*) PO (09:32)
[2017-08-15] MEDS: APIXABAN 2.5 MG TAB (ELIQUIS) PEG ×2 (09:32→21:37)
[2017-08-15] MEDS: CEFTRIAXONE SOD 1 GM in APPROPRIATE DILUENT 1 EA IV ×2 (11:59→23:49)
[2017-08-15] MEDS: guaiFENesin 200 MG TAB PO ×2 (11:59→21:37)
[2017-08-15] MEDS: SENNA 8.6 MG TAB (SENOKOT) PEG (21:37)
[2017-08-16] MEDS: FUROSEMIDE 20 MG/2 ML VIAL (J1940) IV (01:06)
[2017-08-16] MEDS: IPRATROPIUM 0.5MG/ALBUTEROL 2.5MG INH SOL UD 3ML (DUONEB)(J7620) NEB ×4 (01:13→20:22)
[2017-08-16 02:27] LABS: ABG BASE EXCESS 1.5 (-2.0-2.0); ABG HCO3 25.1 MEQ/L (22.0-26.0); ABG O2 SATURATION 90.2 % (95.0-99.0); ABG PARTIAL PRESSURE CO2 35.9 mmHg (35.0-45.0); ABG PARTIAL PRESSURE O2 55.7 mmHg (75.0-100.0); ABG STANDARD HCO3 25.6 MEQ/L (22.0-26.0); ABG TOTAL CO2 26.2 MEQ/L (23.0-31.0); ABG pH (ARTERIAL) 7.462 UNITS (7.350-7.450)
[2017-08-16] MEDS: PIPERACILLIN/TAZOBACTAM SOD 3.375 GM in APPROPRIATE DILUENT 1 EA IV ×4 (04:40→21:15)
[2017-08-16 05:08] LABS: BASO % 0.2 % (0.0-1.0); EOS % 0.2 % (0.0-3.0); HEMATOCRIT 30.5 % (42.0-52.0); IMMATURE GRANULOCYTE # 0.2 10^3/uL (0-0); LYMPH # 0.6 10^3/uL (1.5-4.5); LYMPH % 3.3 % (24.0-44.0); MEAN CORPUSCULAR HEMOGLOBIN 32.4 pg (27.0-33.0); MEAN CORPUSCULAR HGB CONC 32.8 g/dl (32.0-36.5); MEAN CORPUSCULAR VOLUME 98.7 fl (80.0-96.0); MONO # 1.7 10^3/uL (0.0-0.8); MONO % 9.6 % (0.0-5.0); NEUTROPHILS # 15.3 10^3/uL (1.8-7.7); NEUTROPHILS % 85.7 % (36.0-66.0); PLATELET COUNT, AUTOMATED 242 10^3/uL (150-450); RED BLOOD COUNT 3.09 10^6/uL (4.30-6.10); RED CELL DISTRIBUTION WIDTH 13.4 % (11.5-14.5); WHITE BLOOD COUNT 17.8 10^3/uL (4.0-10.0)
[2017-08-16 05:30] LABS: ALBUMIN/GLOBULIN RATIO 0.47 (1.00-1.93); ALKALINE PHOSPHATASE 113 U/L (45-117); ALT/SGPT 24 U/L (12-78); ANION GAP 9 MEQ/L (8-16); AST/SGOT 29 U/L (7-37); BILIRUBIN,TOTAL 0.3 MG/DL (0.2-1.0); BLOOD UREA NITROGEN 40 MG/DL (7-18); CALCIUM LEVEL 10.1 MG/DL (8.8-10.2); CARBON DIOXIDE LEVEL 28 MEQ/L (21-32); CHLORIDE LEVEL 104 MEQ/L (98-107); CREATININE FOR GFR 0.94 MG/DL (0.70-1.30); GLOMERULAR FILTRATION RATE > 60.0 (>35); GLUCOSE, FASTING 250 MG/DL (83-110); MAGNESIUM LEVEL 1.8 MG/DL (1.8-2.4); POTASSIUM SERUM 3.4 MEQ/L (3.5-5.1); SODIUM LEVEL 141 MEQ/L (136-145); TOTAL PROTEIN 6.3 GM/DL (6.4-8.2)
[2017-08-16 05:31] LABS: ERYTHROCYTE SEDIMENTATION RATE 107 mm/hr (0-30)
[2017-08-16] MEDS: LEVOTHYROXINE 50MCG TABLET (0.05MG) PEG (06:32)
[2017-08-16 07:06] LABS: CPK CREATINE PHOSPHOKINASE 46 U/L (39-308); MB/CK RELATIVE INDEX 2.17 (< OR =4); TROPONIN I 0.15 NG/ML (< 0.10)
[2017-08-16] MEDS: TIOTROPIUM INHALER/CAPSULE (SPIRIVA) INH (08:22)
[2017-08-16] MEDS ORDERED: POTASSIUM CHLORIDE 10 MEQ SR TABLET PO (10:00)
[2017-08-16] MEDS: METOPROLOL TART 12.5 MG PER 1/2 TAB PO ×2 (11:43→21:15)
[2017-08-16] MEDS: FLUoxetine 20 MG CAP PEG (11:44)
[2017-08-16] MEDS: guaiFENesin 200 MG TAB PO (11:45)
[2017-08-16] MEDS: TORSEMIDE 20 MG TAB PO (11:45)
[2017-08-16] MEDS: LACTOBACILLUS ACIDOPHILUS CAP (BACID) PEG ×3 (11:45→21:14)
[2017-08-16] MEDS: POTASSIUM CHLORIDE 10% LIQ 20 MEQ/15 ML UDC PO (11:48)
[2017-08-16] MEDS: APIXABAN 2.5 MG TAB (ELIQUIS) PEG (11:49)
[2017-08-16] MEDS: HumaLOG INSULIN (NovoLOG) PER UNIT SC ×2 (12:00→17:59)
[2017-08-16 12:01] LABS: BEDSIDE GLUCOSE 407 MG/DL (83-110)
[2017-08-16] MEDS ORDERED: guaiFENesin SYRUP 200 MG/10 ML UDC PO (13:00)
[2017-08-16] MEDS ORDERED: GLUCAGON FOR INJ 1 MG VIAL (J1610) SC (14:00)
[2017-08-16] MEDS ORDERED: DEXTROSE 50% 50 ML SYRINGE IV (14:00)
[2017-08-16] MEDS ORDERED: GLUCOSE 4 GM CHEW TABLET PO (14:00)
[2017-08-16] MEDS ORDERED: SLF 3 ML SYR IV (16:15)
[2017-08-16 17:58] LABS: BEDSIDE GLUCOSE 417 MG/DL (83-110)
[2017-08-16] MEDS: APIXABAN 5 MG TAB (ELIQUIS) PEG (21:15)
[2017-08-16] MEDS: LATANOPROST 0.005% OPHTH SOLN 2.5 ML OU (21:15)
[2017-08-16] MEDS: SLF 3 ML SYR IV (21:15)
[2017-08-17] MEDS: HumaLOG INSULIN (NovoLOG) PER UNIT SC ×4 (00:34→17:10)
[2017-08-17 00:37] LABS: BEDSIDE GLUCOSE 329 MG/DL (83-110)
[2017-08-17] MEDS: IPRATROPIUM 0.5MG/ALBUTEROL 2.5MG INH SOL UD 3ML (DUONEB)(J7620) NEB ×4 (01:40→21:14)
[2017-08-17] MEDS: SLF 3 ML SYR IV ×3 (02:54→20:53)
[2017-08-17] MEDS: PIPERACILLIN/TAZOBACTAM SOD 3.375 GM in APPROPRIATE DILUENT 1 EA IV ×4 (02:54→20:52)
[2017-08-17] MEDS: LEVOTHYROXINE 50MCG TABLET (0.05MG) PEG (05:29)
[2017-08-17 05:45] LABS: BASO % 0.2 % (0.0-1.0); EOS % 0.1 % (0.0-3.0); HEMATOCRIT 31.2 % (42.0-52.0); HEMOGLOBIN 9.9 g/dl (14.0-18.0); IMMATURE GRANULOCYTE # 0.2 10^3/uL (0-0); IMMATURE GRANULOCYTE % 1.1 % (0-0); LYMPH # 0.6 10^3/uL (1.5-4.5); LYMPH % 3.3 % (24.0-44.0); MEAN CORPUSCULAR HEMOGLOBIN 32.4 pg (27.0-33.0); MEAN CORPUSCULAR HGB CONC 31.7 g/dl (32.0-36.5); MONO # 1.5 10^3/uL (0.0-0.8); MONO % 8.4 % (0.0-5.0); NEUTROPHILS # 15.6 10^3/uL (1.8-7.7); NEUTROPHILS % 86.9 % (36.0-66.0); PLATELET COUNT, AUTOMATED 242 10^3/uL (150-450); RED BLOOD COUNT 3.06 10^6/uL (4.30-6.10); RED CELL DISTRIBUTION WIDTH 13.4 % (11.5-14.5)
[2017-08-17 06:08] LABS: ALBUMIN 1.9 GM/DL (3.2-5.2); ALBUMIN/GLOBULIN RATIO 0.42 (1.00-1.93); ALKALINE PHOSPHATASE 106 U/L (45-117); ALT/SGPT 28 U/L (12-78); ANION GAP 8 MEQ/L (8-16); AST/SGOT 29 U/L (7-37); BILIRUBIN,TOTAL 0.2 MG/DL (0.2-1.0); BLOOD UREA NITROGEN 41 MG/DL (7-18); CALCIUM LEVEL 10.1 MG/DL (8.8-10.2); CARBON DIOXIDE LEVEL 29 MEQ/L (21-32); CHLORIDE LEVEL 107 MEQ/L (98-107); CREATININE FOR GFR 1.06 MG/DL (0.70-1.30); GLOMERULAR FILTRATION RATE > 60.0 (>35); GLUCOSE, FASTING 274 MG/DL (83-110); MAGNESIUM LEVEL 2.1 MG/DL (1.8-2.4); POTASSIUM SERUM 3.9 MEQ/L (3.5-5.1); SODIUM LEVEL 144 MEQ/L (136-145); TOTAL PROTEIN 6.4 GM/DL (6.4-8.2)
[2017-08-17] MEDS: TIOTROPIUM INHALER/CAPSULE (SPIRIVA) INH (07:28)
[2017-08-17] MEDS: LACTOBACILLUS ACIDOPHILUS CAP (BACID) PEG ×3 (10:06→20:52)
[2017-08-17] MEDS: FLUoxetine 20 MG CAP PEG (10:07)
[2017-08-17] MEDS: METOPROLOL TART 12.5 MG PER 1/2 TAB PO ×2 (10:07→20:53)
[2017-08-17] MEDS: TORSEMIDE 20 MG TAB PO (10:07)
[2017-08-17] MEDS: APIXABAN 5 MG TAB (ELIQUIS) PEG ×2 (10:07→20:52)
[2017-08-17 11:29] LABS: BEDSIDE GLUCOSE 360 MG/DL (83-110)
[2017-08-17] MEDS ORDERED: ISOVUE-370 76% 100ML VIAL (Q9967) As Ordered (16:31)
[2017-08-17 17:13] LABS: BEDSIDE GLUCOSE 327 MG/DL (83-110)
[2017-08-17] MEDS: LATANOPROST 0.005% OPHTH SOLN 2.5 ML OU (20:53)
[2017-08-18 00:32] LABS: BEDSIDE GLUCOSE 290 MG/DL (83-110)
[2017-08-18] MEDS: IPRATROPIUM 0.5MG/ALBUTEROL 2.5MG INH SOL UD 3ML (DUONEB)(J7620) NEB ×4 (00:49→20:51)
[2017-08-18] MEDS: ACETAMINOPHEN TAB 650MG DOSE (2X325MG) PO ×2 (00:51→22:33)
[2017-08-18] MEDS: HumaLOG INSULIN (NovoLOG) PER UNIT SC ×4 (00:52→18:56)
[2017-08-18] MEDS: PIPERACILLIN/TAZOBACTAM SOD 3.375 GM in APPROPRIATE DILUENT 1 EA IV ×4 (03:22→20:15)
[2017-08-18] MEDS: SLF 3 ML SYR IV ×3 (03:23→20:16)
[2017-08-18] MEDS: LEVOTHYROXINE 50MCG TABLET (0.05MG) PEG (05:42)
[2017-08-18 06:13] LABS: BEDSIDE GLUCOSE 273 MG/DL (83-110)
[2017-08-18] MEDS: TIOTROPIUM INHALER/CAPSULE (SPIRIVA) INH (07:30)
[2017-08-18 07:43] LABS: BASO % 0.2 % (0.0-1.0); EOS % 0.1 % (0.0-3.0); HEMATOCRIT 31.2 % (42.0-52.0); HEMOGLOBIN 9.9 g/dl (14.0-18.0); IMMATURE GRANULOCYTE # 0.2 10^3/uL (0-0); IMMATURE GRANULOCYTE % 1.1 % (0-0); LYMPH # 0.7 10^3/uL (1.5-4.5); LYMPH % 3.4 % (24.0-44.0); MEAN CORPUSCULAR HEMOGLOBIN 31.9 pg (27.0-33.0); MEAN CORPUSCULAR HGB CONC 31.7 g/dl (32.0-36.5); MEAN CORPUSCULAR VOLUME 100.6 fl (80.0-96.0); MONO # 1.2 10^3/uL (0.0-0.8); MONO % 5.8 % (0.0-5.0); NEUTROPHILS # 17.8 10^3/uL (1.8-7.7); NEUTROPHILS % 89.4 % (36.0-66.0); PLATELET COUNT, AUTOMATED 318 10^3/uL (150-450); RED CELL DISTRIBUTION WIDTH 13.5 % (11.5-14.5); WHITE BLOOD COUNT 19.8 10^3/uL (4.0-10.0)
[2017-08-18 08:06] LABS: ALBUMIN 1.8 GM/DL (3.2-5.2); ALBUMIN/GLOBULIN RATIO 0.39 (1.00-1.93); ALKALINE PHOSPHATASE 115 U/L (45-117); ALT/SGPT 46 U/L (12-78); ANION GAP 9 MEQ/L (8-16); AST/SGOT 38 U/L (7-37); BILIRUBIN,TOTAL 0.3 MG/DL (0.2-1.0); BLOOD UREA NITROGEN 46 MG/DL (7-18); CALCIUM LEVEL 10.5 MG/DL (8.8-10.2); CARBON DIOXIDE LEVEL 31 MEQ/L (21-32); CHLORIDE LEVEL 106 MEQ/L (98-107); CREATININE FOR GFR 1.22 MG/DL (0.70-1.30); GLUCOSE, FASTING 312 MG/DL (83-110); MAGNESIUM LEVEL 2.1 MG/DL (1.8-2.4); POTASSIUM SERUM 3.6 MEQ/L (3.5-5.1); SODIUM LEVEL 146 MEQ/L (136-145); TOTAL PROTEIN 6.4 GM/DL (6.4-8.2)
[2017-08-18] MEDS: FLUoxetine 20 MG CAP PEG (10:38)
[2017-08-18] MEDS: METOPROLOL TART 12.5 MG PER 1/2 TAB PO ×2 (10:42→20:16)
[2017-08-18] MEDS: LACTOBACILLUS ACIDOPHILUS CAP (BACID) PEG ×3 (10:43→20:15)
[2017-08-18] MEDS: APIXABAN 5 MG TAB (ELIQUIS) PEG ×2 (10:43→20:15)
[2017-08-18] MEDS: NS 1,000 ML IV (10:46)
[2017-08-18] MEDS: TORSEMIDE 20 MG TAB PO (10:46)
[2017-08-18 12:21] LABS: BEDSIDE GLUCOSE 225 MG/DL (83-110)
[2017-08-18] MEDS ORDERED: PROPOFOL 200 MG/20 ML VIAL As Ordered ×4 (15:30→16:58)
[2017-08-18] MEDS ORDERED: MIDAZOLAM INJ 2 MG/2 ML VIAL (J2250) As Ordered (15:30)
[2017-08-18] MEDS ORDERED: ONDANSETRON 4MG/2ML VIAL (J2405) As Ordered (15:30)
[2017-08-18] MEDS ORDERED: fentaNYL 100 MCG/2 ML INJECTION (J3010) As Ordered (15:30)
[2017-08-18] MEDS ORDERED: dexameTHASONE 4 MG/ML 1ML VIAL (J1100) As Ordered (15:30)
[2017-08-18] MEDS ORDERED: LIDOCAINE 2% INJ 100 MG/5 ML SDV (FOR ANES.) As Ordered (15:30)
[2017-08-18] MEDS ORDERED: KETOROLAC 60 MG/2 ML VIAL (J1885) As Ordered (15:31)
[2017-08-18] MEDS: CONRAY-60 60% 50ML VIAL (Q9961) As Ordered (16:45)
[2017-08-18] MEDS: ZOSYN 3.375 GM VIAL (J2543) As Ordered (16:46)
[2017-08-18] MEDS: LIDOCAINE 2% 5ML JELLY UROJET As Ordered (16:46)
[2017-08-18] MEDS ORDERED: ACETAMINOPHEN TAB 650MG DOSE (2X325MG) PO (17:45)
[2017-08-18 18:56] LABS: BEDSIDE GLUCOSE 220 MG/DL (83-110)
[2017-08-18] MEDS: LATANOPROST 0.005% OPHTH SOLN 2.5 ML OU (20:16)
[2017-08-18 23:59] LABS: BEDSIDE GLUCOSE 267 MG/DL (83-110)
[2017-08-19] MEDS: HumaLOG INSULIN (NovoLOG) PER UNIT SC ×4 (00:02→18:19)
[2017-08-19] MEDS: IPRATROPIUM 0.5MG/ALBUTEROL 2.5MG INH SOL UD 3ML (DUONEB)(J7620) NEB ×4 (01:52→20:57)
[2017-08-19] MEDS: NS 1,000 ML IV ×2 (03:36→08:20)
[2017-08-19] MEDS: PIPERACILLIN/TAZOBACTAM SOD 3.375 GM in APPROPRIATE DILUENT 1 EA IV ×4 (03:36→20:12)
[2017-08-19] MEDS: ACETAMINOPHEN TAB 650MG DOSE (2X325MG) PO ×3 (04:52→20:12)
[2017-08-19 06:16] LABS: BEDSIDE GLUCOSE 220 MG/DL (83-110)
[2017-08-19 06:19] LABS: BASO % 0.1 % (0.0-1.0); EOS # 0.1 10^3/uL (0.0-0.50); EOS % 0.6 % (0.0-3.0); HEMATOCRIT 30.9 % (42.0-52.0); HEMOGLOBIN 9.8 g/dl (14.0-18.0); IMMATURE GRANULOCYTE # 0.1 10^3/uL (0-0); IMMATURE GRANULOCYTE % 0.9 % (0-0); LYMPH # 0.6 10^3/uL (1.5-4.5); LYMPH % 4.2 % (24.0-44.0); MEAN CORPUSCULAR HEMOGLOBIN 32.5 pg (27.0-33.0); MEAN CORPUSCULAR HGB CONC 31.7 g/dl (32.0-36.5); MEAN CORPUSCULAR VOLUME 102.3 fl (80.0-96.0); MONO # 0.9 10^3/uL (0.0-0.8); MONO % 6.3 % (0.0-5.0); NEUTROPHILS # 13.1 10^3/uL (1.8-7.7); NEUTROPHILS % 87.9 % (36.0-66.0); PLATELET COUNT, AUTOMATED 318 10^3/uL (150-450); RED BLOOD COUNT 3.02 10^6/uL (4.30-6.10); RED CELL DISTRIBUTION WIDTH 13.7 % (11.5-14.5); WHITE BLOOD COUNT 14.9 10^3/uL (4.0-10.0)
[2017-08-19] MEDS: LEVOTHYROXINE 50MCG TABLET (0.05MG) PEG (06:21)
[2017-08-19] MEDS: SLF 3 ML SYR IV ×3 (06:21→20:13)
[2017-08-19 06:44] LABS: ALBUMIN 1.9 GM/DL (3.2-5.2); ALBUMIN/GLOBULIN RATIO 0.44 (1.00-1.93); ALKALINE PHOSPHATASE 101 U/L (45-117); ALT/SGPT 54 U/L (12-78); ANION GAP 8 MEQ/L (8-16); AST/SGOT 39 U/L (7-37); BILIRUBIN,TOTAL 0.3 MG/DL (0.2-1.0); BLOOD UREA NITROGEN 54 MG/DL (7-18); CALCIUM LEVEL 10.1 MG/DL (8.8-10.2); CARBON DIOXIDE LEVEL 33 MEQ/L (21-32); CHLORIDE LEVEL 107 MEQ/L (98-107); CREATININE FOR GFR 1.21 MG/DL (0.70-1.30); GLOMERULAR FILTRATION RATE > 60.0 (>35); GLUCOSE, FASTING 202 MG/DL (83-110); MAGNESIUM LEVEL 2.2 MG/DL (1.8-2.4); POTASSIUM SERUM 3.2 MEQ/L (3.5-5.1); SODIUM LEVEL 148 MEQ/L (136-145); TOTAL PROTEIN 6.2 GM/DL (6.4-8.2)
[2017-08-19] MEDS: TIOTROPIUM INHALER/CAPSULE (SPIRIVA) INH (09:00)
[2017-08-19] MEDS: POTASSIUM CHLORIDE 10% LIQ 20 MEQ/15 ML UDC PEG ×2 (09:48→20:11)
[2017-08-19] MEDS: MIRALAX *UNIT DOSE* 17GM PACKET PO (09:48)
[2017-08-19] MEDS: LACTOBACILLUS ACIDOPHILUS CAP (BACID) PEG ×3 (09:49→20:11)
[2017-08-19] MEDS: FLUoxetine 20 MG CAP PEG (09:49)
[2017-08-19] MEDS: TORSEMIDE 20 MG TAB PO (09:50)
[2017-08-19] MEDS: APIXABAN 5 MG TAB (ELIQUIS) PEG ×2 (09:50→20:11)
[2017-08-19] MEDS: METOPROLOL TART 12.5 MG PER 1/2 TAB PO ×2 (09:50→20:11)
[2017-08-19] MEDS: BACITRACIN OINT 30GM TOP ×2 (09:59→18:24)
[2017-08-19 12:09] LABS: BEDSIDE GLUCOSE 242 MG/DL (83-110)
[2017-08-19 17:59] LABS: BEDSIDE GLUCOSE 293 MG/DL (83-110)
[2017-08-19] MEDS: SENNA SYRUP 15 ML UDC PEG ×2 (18:18→20:11)
[2017-08-19] MEDS: LATANOPROST 0.005% OPHTH SOLN 2.5 ML OU (21:00)
[2017-08-20] MEDS: HumaLOG INSULIN (NovoLOG) PER UNIT SC ×4 (00:24→18:29)
[2017-08-20] MEDS: ACETAMINOPHEN TAB 650MG DOSE (2X325MG) PO ×4 (00:24→20:47)
[2017-08-20 00:28] LABS: BEDSIDE GLUCOSE 292 MG/DL (83-110)
[2017-08-20] MEDS: IPRATROPIUM 0.5MG/ALBUTEROL 2.5MG INH SOL UD 3ML (DUONEB)(J7620) NEB ×4 (02:00→21:15)
[2017-08-20] MEDS: PIPERACILLIN/TAZOBACTAM SOD 3.375 GM in APPROPRIATE DILUENT 1 EA IV ×3 (02:47→14:38)
[2017-08-20] MEDS: LEVOTHYROXINE 50MCG TABLET (0.05MG) PEG (06:03)
[2017-08-20] MEDS: SLF 3 ML SYR IV ×3 (06:05→20:48)
[2017-08-20 06:16] LABS: BEDSIDE GLUCOSE 230 MG/DL (83-110)
[2017-08-20] MEDS: TIOTROPIUM INHALER/CAPSULE (SPIRIVA) INH (07:36)
[2017-08-20 08:50] LABS: BASO % 0.3 % (0.0-1.0); EOS # 0.2 10^3/uL (0.0-0.50); EOS % 1.4 % (0.0-3.0); HEMATOCRIT 31.4 % (42.0-52.0); HEMOGLOBIN 9.8 g/dl (14.0-18.0); IMMATURE GRANULOCYTE # 0.1 10^3/uL (0-0); IMMATURE GRANULOCYTE % 0.7 % (0-0); LYMPH # 0.6 10^3/uL (1.5-4.5); LYMPH % 4.6 % (24.0-44.0); MEAN CORPUSCULAR HEMOGLOBIN 31.9 pg (27.0-33.0); MEAN CORPUSCULAR HGB CONC 31.2 g/dl (32.0-36.5); MEAN CORPUSCULAR VOLUME 102.3 fl (80.0-96.0); MONO # 0.7 10^3/uL (0.0-0.8); MONO % 5.4 % (0.0-5.0); NEUTROPHILS # 11.8 10^3/uL (1.8-7.7); NEUTROPHILS % 87.6 % (36.0-66.0); PLATELET COUNT, AUTOMATED 327 10^3/uL (150-450); RED BLOOD COUNT 3.07 10^6/uL (4.30-6.10); RED CELL DISTRIBUTION WIDTH 13.7 % (11.5-14.5); WHITE BLOOD COUNT 13.5 10^3/uL (4.0-10.0)
[2017-08-20 09:10] LABS: ALBUMIN/GLOBULIN RATIO 0.53 (1.00-1.93); ALKALINE PHOSPHATASE 98 U/L (45-117); ALT/SGPT 49 U/L (12-78); ANION GAP 5 MEQ/L (8-16); AST/SGOT 26 U/L (7-37); BILIRUBIN,TOTAL 0.2 MG/DL (0.2-1.0); BLOOD UREA NITROGEN 50 MG/DL (7-18); CALCIUM LEVEL 9.4 MG/DL (8.8-10.2); CARBON DIOXIDE LEVEL 34 MEQ/L (21-32); CHLORIDE LEVEL 110 MEQ/L (98-107); CREATININE FOR GFR 1.17 MG/DL (0.70-1.30); GLOMERULAR FILTRATION RATE > 60.0 (>35); GLUCOSE, FASTING 286 MG/DL (83-110); POTASSIUM SERUM 3.8 MEQ/L (3.5-5.1); SODIUM LEVEL 149 MEQ/L (136-145); TOTAL PROTEIN 5.8 GM/DL (6.4-8.2)
[2017-08-20] MEDS: METOPROLOL TART 12.5 MG PER 1/2 TAB PO ×2 (10:40→20:47)
[2017-08-20] MEDS: APIXABAN 5 MG TAB (ELIQUIS) PEG ×2 (10:40→20:46)
[2017-08-20] MEDS: TORSEMIDE 20 MG TAB PO (10:40)
[2017-08-20] MEDS: LACTOBACILLUS ACIDOPHILUS CAP (BACID) PEG ×3 (10:40→20:46)
[2017-08-20] MEDS: FLUoxetine 20 MG CAP PEG (10:40)
[2017-08-20] MEDS: ACETAMINOPHEN/CODEINE 12.5 ML UDC PO ×2 (11:53→18:29)
[2017-08-20 12:38] LABS: BEDSIDE GLUCOSE 250 MG/DL (83-110)
[2017-08-20 17:51] LABS: BEDSIDE GLUCOSE 261 MG/DL (83-110)
[2017-08-20] MEDS: LATANOPROST 0.005% OPHTH SOLN 2.5 ML OU (20:47)
[2017-08-20] MEDS: CEFDINIR 250 MG/5 ML 60ML SUSP BTL GT (20:47)
[2017-08-21 00:11] LABS: BEDSIDE GLUCOSE 297 MG/DL (83-110)
[2017-08-21] MEDS: ACETAMINOPHEN/CODEINE 12.5 ML UDC PO ×4 (00:12→22:05)
[2017-08-21] MEDS: HumaLOG INSULIN (NovoLOG) PER UNIT SC ×4 (00:12→18:06)
[2017-08-21] MEDS: IPRATROPIUM 0.5MG/ALBUTEROL 2.5MG INH SOL UD 3ML (DUONEB)(J7620) NEB ×4 (00:20→19:28)
[2017-08-21 05:56] LABS: BASO % 0.3 % (0.0-1.0); EOS # 0.3 10^3/uL (0.0-0.50); EOS % 2.9 % (0.0-3.0); HEMATOCRIT 31.7 % (42.0-52.0); HEMOGLOBIN 9.9 g/dl (14.0-18.0); IMMATURE GRANULOCYTE # 0.1 10^3/uL (0-0); IMMATURE GRANULOCYTE % 0.9 % (0-0); LYMPH # 0.8 10^3/uL (1.5-4.5); LYMPH % 7.1 % (24.0-44.0); MEAN CORPUSCULAR HEMOGLOBIN 32.1 pg (27.0-33.0); MEAN CORPUSCULAR HGB CONC 31.2 g/dl (32.0-36.5); MEAN CORPUSCULAR VOLUME 102.9 fl (80.0-96.0); MONO # 0.7 10^3/uL (0.0-0.8); MONO % 6.1 % (0.0-5.0); NEUTROPHILS # 9.6 10^3/uL (1.8-7.7); NEUTROPHILS % 82.7 % (36.0-66.0); PLATELET COUNT, AUTOMATED 318 10^3/uL (150-450); RED BLOOD COUNT 3.08 10^6/uL (4.30-6.10); RED CELL DISTRIBUTION WIDTH 13.7 % (11.5-14.5); WHITE BLOOD COUNT 11.6 10^3/uL (4.0-10.0)
[2017-08-21] MEDS: LEVOTHYROXINE 50MCG TABLET (0.05MG) PEG (06:11)
[2017-08-21 06:13] LABS: BEDSIDE GLUCOSE 224 MG/DL (83-110)
[2017-08-21] MEDS: SLF 3 ML SYR IV ×3 (06:13→22:06)
[2017-08-21 06:16] LABS: ALBUMIN/GLOBULIN RATIO 0.49 (1.00-1.93); ALKALINE PHOSPHATASE 86 U/L (45-117); ALT/SGPT 37 U/L (12-78); ANION GAP 3 MEQ/L (8-16); AST/SGOT 18 U/L (7-37); BILIRUBIN,TOTAL 0.2 MG/DL (0.2-1.0); BLOOD UREA NITROGEN 48 MG/DL (7-18); CALCIUM LEVEL 9.7 MG/DL (8.8-10.2); CARBON DIOXIDE LEVEL 35 MEQ/L (21-32); CHLORIDE LEVEL 110 MEQ/L (98-107); CREATININE FOR GFR 1.03 MG/DL (0.70-1.30); GLOMERULAR FILTRATION RATE > 60.0 (>35); GLUCOSE, FASTING 239 MG/DL (83-110); POTASSIUM SERUM 3.5 MEQ/L (3.5-5.1); SODIUM LEVEL 148 MEQ/L (136-145); TOTAL PROTEIN 6.1 GM/DL (6.4-8.2)
[2017-08-21] MEDS: TIOTROPIUM INHALER/CAPSULE (SPIRIVA) INH (08:12)
[2017-08-21] MEDS ORDERED: NS 0.45% 1,000 ML IV (08:15)
[2017-08-21] MEDS: SENNA SYRUP 15 ML UDC PEG (09:00)
[2017-08-21] MEDS: METOPROLOL TART 12.5 MG PER 1/2 TAB PO ×2 (09:17→22:04)
[2017-08-21] MEDS: APIXABAN 5 MG TAB (ELIQUIS) PEG ×2 (09:17→22:04)
[2017-08-21] MEDS: FLUoxetine 20 MG CAP PEG (09:18)
[2017-08-21] MEDS: TORSEMIDE 20 MG TAB PO (09:18)
[2017-08-21] MEDS: LACTOBACILLUS ACIDOPHILUS CAP (BACID) PEG ×3 (09:18→22:04)
[2017-08-21] MEDS: CEFDINIR 250 MG/5 ML 60ML SUSP BTL GT ×2 (09:19→22:06)
[2017-08-21 12:18] LABS: BEDSIDE GLUCOSE 207 MG/DL (83-110)
[2017-08-21 17:42] LABS: BEDSIDE GLUCOSE 222 MG/DL (83-110)
[2017-08-21] MEDS: LATANOPROST 0.005% OPHTH SOLN 2.5 ML OU (22:06)
[2017-08-22 00:17] LABS: BEDSIDE GLUCOSE 311 MG/DL (83-110)
[2017-08-22] MEDS: HumaLOG INSULIN (NovoLOG) PER UNIT SC ×5 (00:59→23:59)
[2017-08-22] MEDS: IPRATROPIUM 0.5MG/ALBUTEROL 2.5MG INH SOL UD 3ML (DUONEB)(J7620) NEB ×4 (02:00→22:28)
[2017-08-22] MEDS: ACETAMINOPHEN/CODEINE 12.5 ML UDC PO (04:05)
[2017-08-22 06:13] LABS: BASO # 0.1 10^3/uL (0.0-0.2); BASO % 0.4 % (0.0-1.0); EOS # 0.6 10^3/uL (0.0-0.50); EOS % 3.9 % (0.0-3.0); HEMATOCRIT 32.1 % (42.0-52.0); IMMATURE GRANULOCYTE # 0.2 10^3/uL (0-0); IMMATURE GRANULOCYTE % 1.1 % (0-0); LYMPH # 0.9 10^3/uL (1.5-4.5); LYMPH % 6.1 % (24.0-44.0); MEAN CORPUSCULAR HEMOGLOBIN 31.6 pg (27.0-33.0); MEAN CORPUSCULAR HGB CONC 31.2 g/dl (32.0-36.5); MEAN CORPUSCULAR VOLUME 101.6 fl (80.0-96.0); MONO # 0.7 10^3/uL (0.0-0.8); MONO % 5.2 % (0.0-5.0); NEUTROPHILS # 11.7 10^3/uL (1.8-7.7); NEUTROPHILS % 83.3 % (36.0-66.0); PLATELET COUNT, AUTOMATED 317 10^3/uL (150-450); RED BLOOD COUNT 3.16 10^6/uL (4.30-6.10); RED CELL DISTRIBUTION WIDTH 13.5 % (11.5-14.5)
[2017-08-22 06:20] LABS: BEDSIDE GLUCOSE 124 MG/DL (83-110)
[2017-08-22] MEDS: LEVOTHYROXINE 50MCG TABLET (0.05MG) PEG (06:21)
[2017-08-22 06:39] LABS: ALBUMIN 1.9 GM/DL (3.2-5.2); ALBUMIN/GLOBULIN RATIO 0.48 (1.00-1.93); ALKALINE PHOSPHATASE 81 U/L (45-117); ALT/SGPT 32 U/L (12-78); ANION GAP 4 MEQ/L (8-16); AST/SGOT 19 U/L (7-37); BILIRUBIN,TOTAL 0.2 MG/DL (0.2-1.0); BLOOD UREA NITROGEN 40 MG/DL (7-18); CALCIUM LEVEL 9.7 MG/DL (8.8-10.2); CARBON DIOXIDE LEVEL 35 MEQ/L (21-32); CHLORIDE LEVEL 106 MEQ/L (98-107); CREATININE FOR GFR 0.79 MG/DL (0.70-1.30); GLOMERULAR FILTRATION RATE > 60.0 (>35); GLUCOSE, FASTING 105 MG/DL (83-110); POTASSIUM SERUM 3.5 MEQ/L (3.5-5.1); SODIUM LEVEL 145 MEQ/L (136-145); TOTAL PROTEIN 5.9 GM/DL (6.4-8.2)
[2017-08-22] MEDS: SLF 3 ML SYR IV ×3 (06:39→22:32)
[2017-08-22] MEDS: TIOTROPIUM INHALER/CAPSULE (SPIRIVA) INH (07:10)
[2017-08-22] MEDS: SENNA SYRUP 15 ML UDC PEG (09:44)
[2017-08-22] MEDS: APIXABAN 5 MG TAB (ELIQUIS) PEG ×2 (09:44→22:32)
[2017-08-22] MEDS: TORSEMIDE 20 MG TAB PO (09:44)
[2017-08-22] MEDS: LACTOBACILLUS ACIDOPHILUS CAP (BACID) PEG ×3 (09:45→22:32)
[2017-08-22] MEDS: FLUoxetine 20 MG CAP PEG (09:45)
[2017-08-22] MEDS: METOPROLOL TART 12.5 MG PER 1/2 TAB PO ×2 (09:46→22:31)
[2017-08-22] MEDS: CEFDINIR 250 MG/5 ML 60ML SUSP BTL GT ×2 (09:47→22:31)
[2017-08-22 12:03] LABS: BEDSIDE GLUCOSE 185 MG/DL (83-110)
[2017-08-22 17:57] LABS: BEDSIDE GLUCOSE 160 MG/DL (83-110)
[2017-08-22] MEDS: LATANOPROST 0.005% OPHTH SOLN 2.5 ML OU (22:32)
[2017-08-23 00:08] LABS: BEDSIDE GLUCOSE 141 MG/DL (83-110)
[2017-08-23] MEDS: IPRATROPIUM 0.5MG/ALBUTEROL 2.5MG INH SOL UD 3ML (DUONEB)(J7620) NEB ×4 (02:19→20:37)
[2017-08-23] MEDS: LEVOTHYROXINE 50MCG TABLET (0.05MG) PEG (05:44)
[2017-08-23] MEDS: HumaLOG INSULIN (NovoLOG) PER UNIT SC ×3 (05:44→18:18)
[2017-08-23] MEDS: SLF 3 ML SYR IV ×3 (05:49→22:11)
[2017-08-23] MEDS: TIOTROPIUM INHALER/CAPSULE (SPIRIVA) INH (07:08)
[2017-08-23 07:18] LABS: BASO # 0.1 10^3/uL (0.0-0.2); BASO % 0.4 % (0.0-1.0); EOS # 0.4 10^3/uL (0.0-0.50); EOS % 2.8 % (0.0-3.0); HEMATOCRIT 32.2 % (42.0-52.0); HEMOGLOBIN 10.1 g/dl (14.0-18.0); IMMATURE GRANULOCYTE # 0.1 10^3/uL (0-0); IMMATURE GRANULOCYTE % 0.9 % (0-0); LYMPH # 0.8 10^3/uL (1.5-4.5); LYMPH % 5.7 % (24.0-44.0); MEAN CORPUSCULAR HEMOGLOBIN 31.8 pg (27.0-33.0); MEAN CORPUSCULAR HGB CONC 31.4 g/dl (32.0-36.5); MEAN CORPUSCULAR VOLUME 101.3 fl (80.0-96.0); MONO # 0.6 10^3/uL (0.0-0.8); MONO % 4.5 % (0.0-5.0); NEUTROPHILS # 12.2 10^3/uL (1.8-7.7); NEUTROPHILS % 85.7 % (36.0-66.0); PLATELET COUNT, AUTOMATED 299 10^3/uL (150-450); RED BLOOD COUNT 3.18 10^6/uL (4.30-6.10); RED CELL DISTRIBUTION WIDTH 13.7 % (11.5-14.5); WHITE BLOOD COUNT 14.3 10^3/uL (4.0-10.0)
[2017-08-23 07:41] LABS: ALBUMIN/GLOBULIN RATIO 0.54 (1.00-1.93); ALKALINE PHOSPHATASE 86 U/L (45-117); ALT/SGPT 29 U/L (12-78); ANION GAP 6 MEQ/L (8-16); AST/SGOT 20 U/L (7-37); BILIRUBIN,TOTAL 0.2 MG/DL (0.2-1.0); BLOOD UREA NITROGEN 37 MG/DL (7-18); CALCIUM LEVEL 9.5 MG/DL (8.8-10.2); CARBON DIOXIDE LEVEL 34 MEQ/L (21-32); CHLORIDE LEVEL 101 MEQ/L (98-107); CREATININE FOR GFR 0.92 MG/DL (0.70-1.30); GLOMERULAR FILTRATION RATE > 60.0 (>35); GLUCOSE, FASTING 228 MG/DL (83-110); POTASSIUM SERUM 3.5 MEQ/L (3.5-5.1); SODIUM LEVEL 141 MEQ/L (136-145); TOTAL PROTEIN 5.7 GM/DL (6.4-8.2)
[2017-08-23] MEDS: CEFDINIR 250 MG/5 ML 60ML SUSP BTL GT ×2 (08:55→22:10)
[2017-08-23] MEDS: metroNIDAZOLE (FLAGYL) 500 MG TAB PEG (08:56)
[2017-08-23] MEDS: METOPROLOL TART 12.5 MG PER 1/2 TAB PO ×2 (08:56→22:09)
[2017-08-23] MEDS: ACETAMINOPHEN TAB 650MG DOSE (2X325MG) PO (08:56)
[2017-08-23] MEDS: SENNA SYRUP 15 ML UDC PEG (08:57)
[2017-08-23] MEDS: LACTOBACILLUS ACIDOPHILUS CAP (BACID) PEG ×3 (08:57→22:09)
[2017-08-23] MEDS: TORSEMIDE 20 MG TAB PO (08:57)
[2017-08-23] MEDS: APIXABAN 5 MG TAB (ELIQUIS) PEG ×2 (08:57→22:09)
[2017-08-23] MEDS: FLUoxetine 20 MG CAP PEG (08:57)
[2017-08-23 11:51] LABS: BEDSIDE GLUCOSE 156 MG/DL (83-110)
[2017-08-23 12:03] LABS: BEDSIDE GLUCOSE 173 MG/DL (83-110)
[2017-08-23] MEDS: ACETAMINOPHEN/CODEINE 12.5 ML UDC PO (12:17)
[2017-08-23] MEDS: VANCOMYCIN ORAL SOL 250MG/5ML ORAL SYRINGE PO (18:18)
[2017-08-23] MEDS: LATANOPROST 0.005% OPHTH SOLN 2.5 ML OU (22:09)
[2017-08-24] MEDS: HumaLOG INSULIN (NovoLOG) PER UNIT SC ×3 (00:16→12:54)
[2017-08-24] MEDS: VANCOMYCIN ORAL SOL 250MG/5ML ORAL SYRINGE PO ×3 (00:17→12:53)
[2017-08-24] MEDS: IPRATROPIUM 0.5MG/ALBUTEROL 2.5MG INH SOL UD 3ML (DUONEB)(J7620) NEB ×2 (02:00→07:32)
[2017-08-24] MEDS: SLF 3 ML SYR IV (06:36)
[2017-08-24] MEDS: LEVOTHYROXINE 50MCG TABLET (0.05MG) PEG (06:37)
[2017-08-24 06:46] LABS: BEDSIDE GLUCOSE 132 MG/DL (83-110)
[2017-08-24 06:46] LABS: BEDSIDE GLUCOSE 138 MG/DL (83-110)
[2017-08-24] MEDS: TIOTROPIUM INHALER/CAPSULE (SPIRIVA) INH (07:32)
[2017-08-24 07:39] LABS: BASO # 0.1 10^3/uL (0.0-0.2); BASO % 0.6 % (0.0-1.0); EOS # 0.3 10^3/uL (0.0-0.50); EOS % 2.7 % (0.0-3.0); HEMOGLOBIN 10.3 g/dl (14.0-18.0); IMMATURE GRANULOCYTE # 0.2 10^3/uL (0-0); IMMATURE GRANULOCYTE % 1.3 % (0-0); LYMPH # 0.7 10^3/uL (1.5-4.5); MEAN CORPUSCULAR HEMOGLOBIN 32.6 pg (27.0-33.0); MEAN CORPUSCULAR HGB CONC 32.2 g/dl (32.0-36.5); MEAN CORPUSCULAR VOLUME 101.3 fl (80.0-96.0); MONO # 0.7 10^3/uL (0.0-0.8); NEUTROPHILS # 10.2 10^3/uL (1.8-7.7); NEUTROPHILS % 83.4 % (36.0-66.0); PLATELET COUNT, AUTOMATED 289 10^3/uL (150-450); RED BLOOD COUNT 3.16 10^6/uL (4.30-6.10); RED CELL DISTRIBUTION WIDTH 13.9 % (11.5-14.5); WHITE BLOOD COUNT 12.3 10^3/uL (4.0-10.0)
[2017-08-24 08:04] LABS: ALKALINE PHOSPHATASE 84 U/L (45-117); ALT/SGPT 33 U/L (12-78); ANION GAP 5 MEQ/L (8-16); AST/SGOT 27 U/L (7-37); BILIRUBIN,TOTAL 0.5 MG/DL (0.2-1.0); BLOOD UREA NITROGEN 31 MG/DL (7-18); CALCIUM LEVEL 9.8 MG/DL (8.8-10.2); CARBON DIOXIDE LEVEL 34 MEQ/L (21-32); CHLORIDE LEVEL 101 MEQ/L (98-107); CREATININE FOR GFR 0.77 MG/DL (0.70-1.30); GLOMERULAR FILTRATION RATE > 60.0 (>35); GLUCOSE, FASTING 146 MG/DL (83-110); POTASSIUM SERUM 3.7 MEQ/L (3.5-5.1); SODIUM LEVEL 140 MEQ/L (136-145)
[2017-08-24] MEDS: NYSTATIN CREAM 15 GM EXT (09:30)
[2017-08-24] MEDS: METOPROLOL TART 12.5 MG PER 1/2 TAB PO (09:50)
[2017-08-24] MEDS: TORSEMIDE 20 MG TAB PO (09:51)
[2017-08-24] MEDS: APIXABAN 5 MG TAB (ELIQUIS) PEG (09:51)
[2017-08-24] MEDS: LACTOBACILLUS ACIDOPHILUS CAP (BACID) PEG (09:51)
[2017-08-24] MEDS: FLUoxetine 20 MG CAP PEG (09:51)
[2017-08-24] MEDS: CEFDINIR 250 MG/5 ML 60ML SUSP BTL GT (09:51)
[2017-08-24] MEDS: ACETAMINOPHEN/CODEINE 12.5 ML UDC PO (09:58)
[2017-08-24 11:57] LABS: BEDSIDE GLUCOSE 195 MG/DL (83-110)
[2017-08-24 20:24] LABS: BEDSIDE GLUCOSE 172 MG/DL (83-110)
[2017-08-26 00:06] LABS: Ca Ox Monohydrate 45 % (.)
== END 2017-08-24 15:00 | disposition home health service (06) | DRG 871 ==
LOC: M MS5PR 08-19 22:01 → M ED 11:50 → M ED INP 17:20 → M PCU 23:26
PROC: 0TCB8ZZ Extirpation of Matter from Bladder, Via Natural or Artificial Opening Endoscopic (ICD-10-PCS; principal; 2017-08-18 08:30)
PROC: 0T788DZ Dilation of Bilateral Ureters with Intraluminal Device, Via Natural or Artificial Opening Endoscopic (ICD-10-PCS; 2017-08-18 08:30)
DX: A41.59 Other Gram-negative sepsis (principal); J69.0 Pneumonitis due to inhalation of food and vomit; I69.351 Hemiplegia and hemiparesis following cerebral infarction affecting right dominant side; N17.9 Acute kidney failure, unspecified; N13.2 Hydronephrosis with renal and ureteral calculous obstruction; N39.0 Urinary tract infection, site not specified; E87.0 Hyperosmolality and hypernatremia; A04.71 Enterocolitis due to Clostridium difficile, recurrent; I12.9 Hypertensive chronic kidney disease with stage 1 through stage 4 chronic kidney disease, or unspecified chronic kidney disease; E11.22 Type 2 diabetes mellitus with diabetic chronic kidney disease; H40.9 Unspecified glaucoma; F32.9 Major depressive disorder, single episode, unspecified; J44.9 Chronic obstructive pulmonary disease, unspecified; E03.9 Hypothyroidism, unspecified; I69.320 Aphasia following cerebral infarction; I69.391 Dysphagia following cerebral infarction; I48.2 Chronic atrial fibrillation; G47.33 Obstructive sleep apnea (adult) (pediatric); R59.0 Localized enlarged lymph nodes; R32 Unspecified urinary incontinence; N18.3 Chronic kidney disease, stage 3 (moderate); Z87.891 Personal history of nicotine dependence; Z79.01 Long term (current) use of anticoagulants; Z93.1 Gastrostomy status; Z79.899 Other long term (current) drug therapy; Z85.3 Personal history of malignant neoplasm of breast; Z99.3 Dependence on wheelchair; Z96.651 Presence of right artificial knee joint

== ENCOUNTER 2017-11-18 10:19 | Inpatient (IN) | payer MEDICARE, OTHER ==
[2017-11-18] MEDS ORDERED: LIDOCAINE 1% MDV 20ML VIAL SQ (10:30)
[2017-11-18] MEDS: GENTAMICIN 80 MG in APPROPRIATE DILUENT 1 EA IV (11:29)
[2017-11-18] MEDS: LR 1,000 ML IV ×2 (11:29→16:00)
[2017-11-18 11:57] LABS: INR 0.99; PROTHROMBIN TIME 13.2 SECONDS (12.4-14.5)
[2017-11-18] MEDS: VANCOMYCIN HCL 1,000 MG, VIAL MATE ADAPTER 1 EACH in D5W 250 ML IV (12:07)
[2017-11-18] MEDS ORDERED: fentaNYL 100 MCG/2 ML INJECTION (J3010) As Ordered ×3 (12:43→18:26)
[2017-11-18] MEDS ORDERED: LIDOCAINE 2% INJ 100 MG/5 ML SDV (FOR ANES.) As Ordered (12:43)
[2017-11-18] MEDS ORDERED: ONDANSETRON 4MG/2ML VIAL (J2405) As Ordered (12:43)
[2017-11-18] MEDS ORDERED: PROPOFOL 500 MG/50 ML VIAL As Ordered (12:43)
[2017-11-18] MEDS: LIDOCAINE 2% 5ML JELLY UROJET As Ordered (13:05)
[2017-11-18] MEDS: CONRAY-60 60% 50ML VIAL (Q9961) As Ordered (13:09)
[2017-11-18] MEDS ORDERED: PHENYLephrine HCL 500 MCG/5 ML (100MCG/ML) SYRINGE (J2370) As Ordered (13:17)
[2017-11-18] MEDS ORDERED: PROPOFOL 200 MG/20 ML VIAL As Ordered ×2 (14:05→15:01)
[2017-11-18] MEDS ORDERED: ONDANSETRON 4MG/2ML VIAL (J2405) IV ×2 (16:00→17:00)
[2017-11-18] MEDS ORDERED: guaiFENesin 200 MG TAB GT (17:00)
[2017-11-18] MEDS: fentaNYL 100 MCG/2 ML INJECTION (J3010) IV (18:27)
[2017-11-18] MEDS ORDERED: NYSTATIN 100,000 UNITS/GM TOPICAL PWD 15 GM TOP (21:00)
[2017-11-18] MEDS: NYSTATIN CREAM 15 GM TOP (21:00)
[2017-11-18] MEDS: LATANOPROST 0.005% OPHTH SOLN 2.5 ML OU (21:00)
[2017-11-18] MEDS: METOPROLOL TART 12.5 MG PER 1/2 TAB GT (21:54)
[2017-11-18] MEDS: PERCOCET 5MG/325MG TAB PO (21:55)
[2017-11-18] MEDS: CIPROFLOXACIN 500 MG TAB GT (21:55)
[2017-11-18] MEDS: AUGMENTIN 500 MG TAB GT (21:55)
[2017-11-18] MEDS: DIAPER RELIEF PASTE (DESITIN) 60GM TOP (21:56)
[2017-11-19] MEDS: LEVOTHYROXINE 50MCG TABLET (0.05MG) GT (05:28)
[2017-11-19] MEDS: CIPROFLOXACIN 500 MG TAB GT ×2 (05:28→17:50)
[2017-11-19] MEDS: TIOTROPIUM INHALER/CAPSULE (SPIRIVA) INH (07:48)
[2017-11-19] MEDS: PROBIOTIC PEG ×5 (08:00→23:45)
[2017-11-19] MEDS: [UNRECOGNIZED DRUG - OTHER] PEG ×3 (08:00→17:50)
[2017-11-19] MEDS: AUGMENTIN 500 MG TAB GT ×2 (08:41→20:49)
[2017-11-19] MEDS: TORSEMIDE 20 MG TAB GT (08:41)
[2017-11-19] MEDS: ENOXAPARIN 40 MG/0.4 ML SYRINGE (J1650) SC (08:42)
[2017-11-19] MEDS: NYSTATIN CREAM 15 GM TOP ×2 (08:43→20:47)
[2017-11-19] MEDS: METOPROLOL TART 12.5 MG PER 1/2 TAB GT ×2 (08:43→20:48)
[2017-11-19] MEDS: ACETAMINOPHEN TAB 650MG DOSE (2X325MG) PO ×2 (09:36→21:57)
[2017-11-19] MEDS ORDERED: IPRATROPIUM 0.5MG/ALBUTEROL 2.5MG INH SOL UD 3ML (DUONEB)(J7620) NEB (14:15)
[2017-11-19 15:10] LABS: HEMATOCRIT 32.2 % (42.0-52.0); HEMOGLOBIN 10.4 g/dl (13.5-17.5); MEAN CORPUSCULAR HEMOGLOBIN 31.6 pg (27.0-33.0); MEAN CORPUSCULAR HGB CONC 32.3 g/dl (32.0-36.5); MEAN CORPUSCULAR VOLUME 97.9 fl (80.0-96.0); PLATELET COUNT, AUTOMATED 226 10^3/uL (150-450); RED BLOOD COUNT 3.29 10^6/uL (4.30-6.10); RED CELL DISTRIBUTION WIDTH 14.6 % (11.5-14.5); WHITE BLOOD COUNT 14.8 10^3/uL (4.0-10.0)
[2017-11-19 15:39] LABS: ALBUMIN 2.3 GM/DL (3.2-5.2); ALBUMIN/GLOBULIN RATIO 0.72 (1.00-1.93); ALKALINE PHOSPHATASE 99 U/L (45-117); ALT/SGPT 19 U/L (12-78); ANION GAP 4 MEQ/L (8-16); AST/SGOT 27 U/L (7-37); BILIRUBIN,TOTAL 0.2 MG/DL (0.2-1.0); BLOOD UREA NITROGEN 42 MG/DL (7-18); CALCIUM LEVEL 9.4 MG/DL (8.8-10.2); CARBON DIOXIDE LEVEL 32 MEQ/L (21-32); CHLORIDE LEVEL 102 MEQ/L (98-107); CREATININE FOR GFR 1.14 MG/DL (0.70-1.30); GLOMERULAR FILTRATION RATE > 60.0 (>35); GLUCOSE, FASTING 220 MG/DL (70-100); MAGNESIUM LEVEL 2.2 MG/DL (1.8-2.4); POTASSIUM SERUM 4.4 MEQ/L (3.5-5.1); SODIUM LEVEL 138 MEQ/L (136-145); TOTAL PROTEIN 5.5 GM/DL (6.4-8.2)
[2017-11-19] MEDS: methylPREDNISolone INJ 40 MG/1 ML VIAL (J2920) IV (16:27)
[2017-11-19] MEDS: IPRATROPIUM 0.5MG/ALBUTEROL 2.5MG INH SOL UD 3ML (DUONEB)(J7620) NEB ×3 (16:51→23:58)
[2017-11-19] MEDS: LACTOBACILLUS ACIDOPHILUS CAP (BACID) PO (17:50)
[2017-11-19] MEDS: LATANOPROST 0.005% OPHTH SOLN 2.5 ML OU (21:04)
[2017-11-20] MEDS: IPRATROPIUM 0.5MG/ALBUTEROL 2.5MG INH SOL UD 3ML (DUONEB)(J7620) NEB ×6 (03:10→23:24)
[2017-11-20 04:07] LABS: HEMATOCRIT 31.2 % (42.0-52.0); HEMOGLOBIN 10.1 g/dl (13.5-17.5); MEAN CORPUSCULAR HEMOGLOBIN 31.1 pg (27.0-33.0); MEAN CORPUSCULAR HGB CONC 32.4 g/dl (32.0-36.5); PLATELET COUNT, AUTOMATED 218 10^3/uL (150-450); RED BLOOD COUNT 3.25 10^6/uL (4.30-6.10); RED CELL DISTRIBUTION WIDTH 14.6 % (11.5-14.5); WHITE BLOOD COUNT 13.1 10^3/uL (4.0-10.0)
[2017-11-20] MEDS: methylPREDNISolone INJ 40 MG/1 ML VIAL (J2920) IV ×2 (04:17→16:17)
[2017-11-20 04:29] LABS: ALBUMIN 2.2 GM/DL (3.2-5.2); ALBUMIN/GLOBULIN RATIO 0.55 (1.00-1.93); ALKALINE PHOSPHATASE 91 U/L (45-117); ALT/SGPT 17 U/L (12-78); ANION GAP 7 MEQ/L (8-16); AST/SGOT 19 U/L (7-37); BILIRUBIN,TOTAL 0.2 MG/DL (0.2-1.0); BLOOD UREA NITROGEN 44 MG/DL (7-18); CALCIUM LEVEL 9.5 MG/DL (8.8-10.2); CARBON DIOXIDE LEVEL 28 MEQ/L (21-32); CHLORIDE LEVEL 101 MEQ/L (98-107); CREATININE FOR GFR 1.15 MG/DL (0.70-1.30); GLOMERULAR FILTRATION RATE > 60.0 (>35); GLUCOSE, FASTING 257 MG/DL (70-100); MAGNESIUM LEVEL 2.2 MG/DL (1.8-2.4); POTASSIUM SERUM 4.6 MEQ/L (3.5-5.1); SODIUM LEVEL 136 MEQ/L (136-145); TOTAL PROTEIN 6.2 GM/DL (6.4-8.2)
[2017-11-20] MEDS: CIPROFLOXACIN 500 MG TAB GT ×2 (06:00→17:56)
[2017-11-20] MEDS: LEVOTHYROXINE 50MCG TABLET (0.05MG) GT (06:00)
[2017-11-20] MEDS: FUROSEMIDE 40 MG/4 ML VIAL (J1940) IV ×3 (06:08→21:19)
[2017-11-20 07:33] LABS: ESTIMATED AVERAGE GLUCOSE 131 MG/DL (60-110); HEMOGLOBIN A1c 6.2 %
[2017-11-20] MEDS: [UNRECOGNIZED DRUG - OTHER] PEG ×3 (08:00→17:56)
[2017-11-20] MEDS: TIOTROPIUM INHALER/CAPSULE (SPIRIVA) INH (08:13)
[2017-11-20] MEDS: METOPROLOL TART 12.5 MG PER 1/2 TAB GT ×2 (09:00→21:24)
[2017-11-20] MEDS: ACETAMINOPHEN TAB 650MG DOSE (2X325MG) PO ×3 (09:04→19:41)
[2017-11-20] MEDS: AUGMENTIN 500 MG TAB GT ×2 (09:15→21:14)
[2017-11-20] MEDS: LACTOBACILLUS ACIDOPHILUS CAP (BACID) PO (09:15)
[2017-11-20] MEDS: NYSTATIN CREAM 15 GM TOP ×2 (09:16→21:25)
[2017-11-20] MEDS: ENOXAPARIN 40 MG/0.4 ML SYRINGE (J1650) SC (09:16)
[2017-11-20] MEDS: PROBIOTIC PEG ×2 (12:12→17:57)
[2017-11-20] MEDS ORDERED: FUROSEMIDE 100 MG/10 ML VIAL (J1940) IV (14:00)
[2017-11-20] MEDS: LATANOPROST 0.005% OPHTH SOLN 2.5 ML OU (21:25)
[2017-11-20] MEDS: PERCOCET 5MG/325MG TAB PO (22:44)
[2017-11-21] MEDS: IPRATROPIUM 0.5MG/ALBUTEROL 2.5MG INH SOL UD 3ML (DUONEB)(J7620) NEB ×2 (04:13→08:10)
[2017-11-21 04:16] LABS: HEMATOCRIT 31.3 % (42.0-52.0); MEAN CORPUSCULAR HEMOGLOBIN 30.4 pg (27.0-33.0); MEAN CORPUSCULAR HGB CONC 31.9 g/dl (32.0-36.5); MEAN CORPUSCULAR VOLUME 95.1 fl (80.0-96.0); PLATELET COUNT, AUTOMATED 235 10^3/uL (150-450); RED BLOOD COUNT 3.29 10^6/uL (4.30-6.10); RED CELL DISTRIBUTION WIDTH 14.4 % (11.5-14.5); WHITE BLOOD COUNT 12.6 10^3/uL (4.0-10.0)
[2017-11-21] MEDS: methylPREDNISolone INJ 40 MG/1 ML VIAL (J2920) IV (04:34)
[2017-11-21 04:37] LABS: ALBUMIN 2.3 GM/DL (3.2-5.2); ALBUMIN/GLOBULIN RATIO 0.58 (1.00-1.93); ALKALINE PHOSPHATASE 82 U/L (45-117); ALT/SGPT 17 U/L (12-78); ANION GAP 6 MEQ/L (8-16); AST/SGOT 17 U/L (7-37); BILIRUBIN,TOTAL 0.2 MG/DL (0.2-1.0); BLOOD UREA NITROGEN 44 MG/DL (7-18); CALCIUM LEVEL 10.6 MG/DL (8.8-10.2); CARBON DIOXIDE LEVEL 30 MEQ/L (21-32); CHLORIDE LEVEL 101 MEQ/L (98-107); CREATININE FOR GFR 0.97 MG/DL (0.70-1.30); GLOMERULAR FILTRATION RATE > 60.0 (>35); GLUCOSE, FASTING 170 MG/DL (70-100); MAGNESIUM LEVEL 2.2 MG/DL (1.8-2.4); POTASSIUM SERUM 4.4 MEQ/L (3.5-5.1); SODIUM LEVEL 137 MEQ/L (136-145); TOTAL PROTEIN 6.3 GM/DL (6.4-8.2)
[2017-11-21] MEDS: CIPROFLOXACIN 500 MG TAB GT (06:00)
[2017-11-21] MEDS: LEVOTHYROXINE 50MCG TABLET (0.05MG) GT (06:00)
[2017-11-21] MEDS: FUROSEMIDE 40 MG/4 ML VIAL (J1940) IV (06:02)
[2017-11-21] MEDS: PERCOCET 5MG/325MG TAB PO (06:46)
[2017-11-21] MEDS: [UNRECOGNIZED DRUG - OTHER] PEG ×2 (08:00→12:30)
[2017-11-21] MEDS: PROBIOTIC PEG ×2 (08:00→12:30)
[2017-11-21] MEDS: TIOTROPIUM INHALER/CAPSULE (SPIRIVA) INH (08:09)
[2017-11-21] MEDS: METOPROLOL TART 12.5 MG PER 1/2 TAB GT (09:00)
[2017-11-21] MEDS: NYSTATIN CREAM 15 GM TOP (11:21)
[2017-11-21] MEDS: predniSONE 20 MG TAB PO (11:21)
[2017-11-21] MEDS: APIXABAN 5 MG TAB (ELIQUIS) GT (11:21)
[2017-11-21] MEDS: LACTOBACILLUS ACIDOPHILUS CAP (BACID) PO (11:22)
[2017-11-21] MEDS: AUGMENTIN 500 MG TAB GT (11:22)
[2017-11-21] MEDS: TORSEMIDE 20 MG TAB GT (11:22)
== END 2017-11-21 14:22 | disposition home or self-care (01) | DRG 668 ==
LOC: M SDC 10:19 → M PCU 11-21 14:22 → M SDC 11-21 14:22 → M PCU 18:35 → M SDC 18:35 → M PCU 11-20 11:00
PROC: 0TC68ZZ Extirpation of Matter from Right Ureter, Via Natural or Artificial Opening Endoscopic (ICD-10-PCS; principal; 2017-11-18 11:25)
PROC: 0TC78ZZ Extirpation of Matter from Left Ureter, Via Natural or Artificial Opening Endoscopic (ICD-10-PCS; 2017-11-18 11:25)
PROC: 0TP98DZ Removal of Intraluminal Device from Ureter, Via Natural or Artificial Opening Endoscopic (ICD-10-PCS; 2017-11-18 11:25)
PROC: 0T788DZ Dilation of Bilateral Ureters with Intraluminal Device, Via Natural or Artificial Opening Endoscopic (ICD-10-PCS; 2017-11-18 11:25)
DX: N20.0 Calculus of kidney (principal); J96.21 Acute and chronic respiratory failure with hypoxia; I50.33 Acute on chronic diastolic (congestive) heart failure; N39.0 Urinary tract infection, site not specified; I69.351 Hemiplegia and hemiparesis following cerebral infarction affecting right dominant side; I69.320 Aphasia following cerebral infarction; I69.391 Dysphagia following cerebral infarction; J44.9 Chronic obstructive pulmonary disease, unspecified; I27.20 Pulmonary hypertension, unspecified; G47.33 Obstructive sleep apnea (adult) (pediatric); E03.9 Hypothyroidism, unspecified; I48.91 Unspecified atrial fibrillation; Z93.1 Gastrostomy status; Z99.81 Dependence on supplemental oxygen; Z79.01 Long term (current) use of anticoagulants; Z79.899 Other long term (current) drug therapy; Z99.89 Dependence on other enabling machines and devices

== ENCOUNTER → 2017-12-20 | Outpatient (CLI) | payer MEDICARE, OTHER | LOC: M LAB 12:15 | DX: N20.0 Calculus of kidney (principal) | CPT/HCPCS: 74018 ==

== ENCOUNTER → 2017-12-24 | Outpatient (REF) | payer MEDICARE, OTHER ==
[2017-12-24 13:34] LABS: AMORPHOUS SEDIMENT SMALL (NEGATIVE); APPEARANCE, URINE CLOUDY (CLEAR); BACTERIA, URINE AUTO 3+ (NEGATIVE); BILIRUBIN, URINE AUTO NEGATIVE (NEGATIVE); BLOOD, URINE BLOOD 3+ (NEGATIVE); COLOR, URINE RED (YELLOW); GLUCOSE, URINE (UA) AUTO NEGATIVE (NEGATIVE); KETONE, URINE AUTO NEGATIVE (NEGATIVE); LEUKOCYTE ESTERASE, URINE AUTO 3+ (NEGATIVE); NITRITE, URINE AUTO NEGATIVE (NEGATIVE); PROTEIN, URINE AUTO 2+ mg/dL (NEGATIVE); RBC, URINE AUTO 36 /HPF (0-3); SPECIFIC GRAVITY URINE AUTO 1.004 (1.002-1.035); SQUAMOUS EPITHELIAL CELL UR AU 0 /HPF (0-6); UROBILINOGEN, URINE AUTO 0.2 mg/dL (0.0-2.0); WBC, URINE AUTO 48 /HPF (0-3)
== END ==
LOC: M SMT 12:57
DX: N20.0 Calculus of kidney (principal)
CPT/HCPCS: 81001

== ENCOUNTER 2017-12-27 23:38 | Inpatient (IN) | payer MEDICARE, OTHER ==
[2017-12-28 00:37] LABS: BASO # 0.1 10^3/uL (0.0-0.2); BASO % 0.3 % (0.0-1.0); EOS % 0.1 % (0.0-3.0); HEMOGLOBIN 12.3 g/dl (13.5-17.5); LYMPH % 4.9 % (24.0-44.0); MEAN CORPUSCULAR HGB CONC 35.1 g/dl (32.0-36.5); MEAN CORPUSCULAR VOLUME 88.2 fl (80.0-96.0); MONO # 1.8 10^3/uL (0.0-0.8); MONO % 8.8 % (0.0-5.0); NEUTROPHILS # 17.6 10^3/uL (1.8-7.7); NEUTROPHILS % 84.9 % (36.0-66.0); PLATELET COUNT, AUTOMATED 372 10^3/uL (150-450); RED BLOOD COUNT 3.97 10^6/uL (4.30-6.10); RED CELL DISTRIBUTION WIDTH 13.8 % (11.5-14.5); WHITE BLOOD COUNT 20.7 10^3/uL (4.0-10.0)
[2017-12-28] MEDS: IPRATROPIUM 0.5MG/ALBUTEROL 2.5MG INH SOL UD 3ML (DUONEB)(J7620) NEB ×5 (00:50→21:28)
[2017-12-28 00:52] LABS: ABG BASE EXCESS 0.4 (-2.0-2.0); ABG HCO3 27.6 MEQ/L (22.0-26.0); ABG PARTIAL PRESSURE CO2 56.1 mmHg (35.0-45.0); ABG STANDARD HCO3 24.7 MEQ/L (22.0-26.0); ABG TOTAL CO2 29.3 MEQ/L (23.0-31.0)
[2017-12-28 01:03] LABS: AMMONIA 79 uMOL/L (<32)
[2017-12-28 01:06] LABS: ALBUMIN 2.7 GM/DL (3.2-5.2); ALBUMIN/GLOBULIN RATIO 0.77 (1.00-1.93); ALKALINE PHOSPHATASE 143 U/L (45-117); ALT/SGPT 16 U/L (12-78); AST/SGOT 25 U/L (7-37); BILIRUBIN,DIRECT < 0.1 MG/DL (0.0-0.2); BILIRUBIN,TOTAL 0.3 MG/DL (0.2-1.0); BLOOD UREA NITROGEN 37 MG/DL (7-18); CALCIUM LEVEL 9.8 MG/DL (8.8-10.2); CARBON DIOXIDE LEVEL 27 MEQ/L (21-32); CHLORIDE LEVEL 79 MEQ/L (98-107); CPK CREATINE PHOSPHOKINASE 64 U/L (39-308); CREATININE FOR GFR 0.88 MG/DL (0.70-1.30); GLOMERULAR FILTRATION RATE > 60.0 (>35); GLUCOSE, FASTING 268 MG/DL (70-100); TOTAL PROTEIN 6.2 GM/DL (6.4-8.2); TROPONIN I 0.05 NG/ML (< 0.10)
[2017-12-28 01:07] LABS: LACTIC ACID SEPSIS PROTOCOL 1.8 MMOL/L (0.4-2.0)
[2017-12-28 01:12] LABS: CK-MB VALUE MASS 2.9 NG/ML (<3.6); MB/CK RELATIVE INDEX 4.53 (< OR =4); NT-PRO BNP 8727 PG/ML (<450)
[2017-12-28] MEDS: FUROSEMIDE 40 MG/4 ML VIAL (J1940) IV (01:25)
[2017-12-28] MEDS: cefTRIAXone SOD 2 GM in D5W MINI-BAG PLUS 50 ML IV (01:26)
[2017-12-28 01:27] LABS: ANION GAP 9 MEQ/L (8-16)
[2017-12-28 01:33] LABS: POTASSIUM SERUM 5.5 MEQ/L (3.5-5.1); SODIUM LEVEL 115 MEQ/L (136-145)
[2017-12-28 02:08] LABS: KETONE, URINE AUTO RFX TRACE mg/dL (NEGATIVE); NITRITE, URINE AUTO RFX NEGATIVE (NEGATIVE); RBC, URINE AUTO RFX TNTC /HPF (0-3); SPECIFIC GRAVITY UR AUTO RFX 1.013 (1.002-1.035); SQUAM EPITHELIAL CELL UR AURFX 0 /HPF (0-6)
[2017-12-28 02:09] LABS: LEUKOCYTE ESTERASE UR AUTO RFX 2+ (NEGATIVE); WBC, URINE AUTO RFX 58 /HPF (0-3)
[2017-12-28] MEDS: CALCIUM GLUCONATE 1,000 MG in D5W MINI-BAG PLUS 100 ML IV (02:18)
[2017-12-28 02:26] LABS: FREE T4 0.95 NG/DL (0.76-1.46)
[2017-12-28] MEDS: DEXTROSE 50% 50 ML SYRINGE IV (02:49)
[2017-12-28] MEDS: HumuLIN R (REGULAR) INSULIN (NovoLIN R) **100U/ML** PER UNIT IV (02:49)
[2017-12-28 02:51] LABS: ABG BASE EXCESS 0.9 (-2.0-2.0); ABG HCO3 26.9 MEQ/L (22.0-26.0); ABG O2 SATURATION 89.6 % (95.0-99.0); ABG PARTIAL PRESSURE CO2 48.3 mmHg (35.0-45.0); ABG PARTIAL PRESSURE O2 59.1 mmHg (75.0-100.0); ABG STANDARD HCO3 25.1 MEQ/L (22.0-26.0); ABG TOTAL CO2 28.3 MEQ/L (23.0-31.0); ABG pH (ARTERIAL) 7.363 UNITS (7.350-7.450)
[2017-12-28] MEDS ORDERED: ALBUTEROL SULFATE 2.5 MG/0.5 ML INH NEB SOLN NEB (03:30)
[2017-12-28] MEDS ORDERED: FUROSEMIDE 80 MG TAB PO (03:44)
[2017-12-28] MEDS: FUROSEMIDE 100 MG/10 ML VIAL (J1940) IV ×2 (04:09→20:55)
[2017-12-28 04:27] LABS: OSMOLALITY SERUM 261 MOSM/KG (280-301)
[2017-12-28] MEDS ORDERED: ACETAMINOPHEN 325 MG/10.15 ML UDC PEG (04:45)
[2017-12-28] MEDS ORDERED: PILL CRUSHER/CUTTER 1 EACH XX (04:45)
[2017-12-28] MEDS: ACETAMINOPHEN/CODEINE 300MG/30MG 12.5 ML UDC PEG (04:51)
[2017-12-28 05:26] LABS: ABG BASE EXCESS 1.8 (-2.0-2.0); ABG HCO3 27.4 MEQ/L (22.0-26.0); ABG O2 SATURATION 93.4 % (95.0-99.0); ABG PARTIAL PRESSURE CO2 46.8 mmHg (35.0-45.0); ABG PARTIAL PRESSURE O2 67.6 mmHg (75.0-100.0); ABG TOTAL CO2 28.8 MEQ/L (23.0-31.0); ABG pH (ARTERIAL) 7.385 UNITS (7.350-7.450)
[2017-12-28 05:53] LABS: BASO % 0.2 % (0.0-1.0); HEMATOCRIT 31.9 % (42.0-52.0); HEMOGLOBIN 11.4 g/dl (13.5-17.5); IMMATURE GRANULOCYTE % 0.9 % (0-3.0); LYMPH # 0.7 10^3/uL (1.5-4.5); LYMPH % 4.4 % (24.0-44.0); MEAN CORPUSCULAR HEMOGLOBIN 31.1 pg (27.0-33.0); MEAN CORPUSCULAR HGB CONC 35.7 g/dl (32.0-36.5); MEAN CORPUSCULAR VOLUME 86.9 fl (80.0-96.0); MONO # 1.9 10^3/uL (0.0-0.8); MONO % 11.7 % (0.0-5.0); NEUTROPHILS # 13.2 10^3/uL (1.8-7.7); NEUTROPHILS % 82.8 % (36.0-66.0); PLATELET COUNT, AUTOMATED 302 10^3/uL (150-450); RED BLOOD COUNT 3.67 10^6/uL (4.30-6.10); RED CELL DISTRIBUTION WIDTH 13.4 % (11.5-14.5)
[2017-12-28] MEDS: AZITHROMYCIN INJ 500 MG, VIAL MATE ADAPTER 1 EACH in D5W 250 ML IV (06:16)
[2017-12-28 06:31] LABS: ALBUMIN 2.4 GM/DL (3.2-5.2); ALBUMIN/GLOBULIN RATIO 0.77 (1.00-1.93); ALKALINE PHOSPHATASE 131 U/L (45-117); ALT/SGPT 12 U/L (12-78); ANION GAP 8 MEQ/L (8-16); AST/SGOT 19 U/L (7-37); BILIRUBIN,TOTAL 0.2 MG/DL (0.2-1.0); BLOOD UREA NITROGEN 37 MG/DL (7-18); CALCIUM LEVEL 9.6 MG/DL (8.8-10.2); CARBON DIOXIDE LEVEL 27 MEQ/L (21-32); CHLORIDE LEVEL 82 MEQ/L (98-107); CREATININE FOR GFR 0.83 MG/DL (0.70-1.30); FREE THYROXINE INDEX 1.6 % (1.4-3.8); GLOMERULAR FILTRATION RATE > 60.0 (>35); GLUCOSE, FASTING 175 MG/DL (70-100); SODIUM LEVEL 117 MEQ/L (136-145); T UPTAKE 41 % (33-40); THYROXINE (T4) 3.8 UG/DL (4.5-12.0); TOTAL PROTEIN 5.5 GM/DL (6.4-8.2)
[2017-12-28 06:33] LABS: POTASSIUM SERUM 5.2 MEQ/L (3.5-5.1)
[2017-12-28] MEDS: LEVOTHYROXINE 50MCG TABLET (0.05MG) GT (06:41)
[2017-12-28 07:18] LABS: C REACTIVE PROTEIN QUANTITATIV 1.08 MG/DL (0.00-0.30)
[2017-12-28] MEDS ORDERED: IPRATROPIUM 0.5MG/ALBUTEROL 2.5MG INH SOL UD 3ML (DUONEB)(J7620) NEB (08:00)
[2017-12-28] MEDS: LACTOBACILLUS PEG ×3 (08:00→17:10)
[2017-12-28 08:12] LABS: ERYTHROCYTE SEDIMENTATION RATE 46 mm/hr (0-30)
[2017-12-28] MEDS: [UNRECOGNIZED DRUG - OTHER] PEG (09:00)
[2017-12-28] MEDS: PANTOPRAZOLE 40MG INJ (PROTONIX) (C9113) IV (09:00)
[2017-12-28 09:17] LABS: CREATININE,RANDOM URINE 18.3 MG/DL; SODIUM,RANDOM URINE 34 MEQ/L
[2017-12-28 09:35] LABS: ANION GAP 8 MEQ/L (8-16); BLOOD UREA NITROGEN 37 MG/DL (7-18); CALCIUM LEVEL 9.5 MG/DL (8.8-10.2); CARBON DIOXIDE LEVEL 27 MEQ/L (21-32); CHLORIDE LEVEL 81 MEQ/L (98-107); CREATININE FOR GFR 0.77 MG/DL (0.70-1.30); GLOMERULAR FILTRATION RATE > 60.0 (>35); GLUCOSE, FASTING 187 MG/DL (70-100); POTASSIUM SERUM 5.1 MEQ/L (3.5-5.1); SODIUM LEVEL 116 MEQ/L (136-145); URIC ACID 9.4 MG/DL (3.5-7.2)
[2017-12-28] MEDS: METOPROLOL TART 25 MG TABLET GT ×2 (09:45→20:54)
[2017-12-28] MEDS: APIXABAN 5 MG TAB (ELIQUIS) GT ×2 (09:45→20:54)
[2017-12-28 09:50] LABS: CORTISOL AM 31.9 UG/DL (4.3-22.4)
[2017-12-28 11:24] LABS: OSMOLALITY URINE 293 MOSM/KG (500-800)
[2017-12-28] MEDS ORDERED: FUROSEMIDE 40 MG/4 ML VIAL (J1940) IV (11:30)
[2017-12-28 14:05] LABS: ANION GAP 8 MEQ/L (8-16); BLOOD UREA NITROGEN 36 MG/DL (7-18); CALCIUM LEVEL 9.9 MG/DL (8.8-10.2); CARBON DIOXIDE LEVEL 27 MEQ/L (21-32); CHLORIDE LEVEL 80 MEQ/L (98-107); CREATININE FOR GFR 0.74 MG/DL (0.70-1.30); GLOMERULAR FILTRATION RATE > 60.0 (>35); GLUCOSE, FASTING 121 MG/DL (70-100); SODIUM LEVEL 115 MEQ/L (136-145)
[2017-12-28 14:18] LABS: POTASSIUM SERUM 5.3 MEQ/L (3.5-5.1)
[2017-12-28] MEDS: SODIUM CHLORIDE 3% 500 ML IV (15:12)
[2017-12-28] MEDS: TIOTROPIUM INHALER/CAPSULE (SPIRIVA) INH (15:24)
[2017-12-28 19:23] LABS: ANION GAP 8 MEQ/L (8-16); BLOOD UREA NITROGEN 39 MG/DL (7-18); CALCIUM LEVEL 9.4 MG/DL (8.8-10.2); CARBON DIOXIDE LEVEL 28 MEQ/L (21-32); CHLORIDE LEVEL 83 MEQ/L (98-107); CREATININE FOR GFR 0.82 MG/DL (0.70-1.30); GLOMERULAR FILTRATION RATE > 60.0 (>35); GLUCOSE, FASTING 280 MG/DL (70-100); POTASSIUM SERUM 4.6 MEQ/L (3.5-5.1); SODIUM LEVEL 119 MEQ/L (136-145)
[2017-12-28] MEDS: LATANOPROST 0.005% OPHTH SOLN 2.5 ML OU (20:55)
[2017-12-28] MEDS: guaiFENesin SYRUP 200 MG/10 ML UDC PO (20:56)
[2017-12-28 23:17] LABS: ANION GAP 8 MEQ/L (8-16); BLOOD UREA NITROGEN 39 MG/DL (7-18); CALCIUM LEVEL 9.1 MG/DL (8.8-10.2); CARBON DIOXIDE LEVEL 27 MEQ/L (21-32); CHLORIDE LEVEL 88 MEQ/L (98-107); CREATININE FOR GFR 0.77 MG/DL (0.70-1.30); GLOMERULAR FILTRATION RATE > 60.0 (>35); GLUCOSE, FASTING 293 MG/DL (70-100); POTASSIUM SERUM 4.5 MEQ/L (3.5-5.1); SODIUM LEVEL 123 MEQ/L (136-145)
[2017-12-29] MEDS ORDERED: D5W 250 ML IV
[2017-12-29] MEDS: D5W 500 ML IV (00:14)
[2017-12-29] MEDS: cefTRIAXone SOD 1 GM in D5W MINI-BAG PLUS 50 ML IV (02:26)
[2017-12-29 04:39] LABS: BASO % 0.2 % (0.0-1.0); EOS % 0.1 % (0.0-3.0); HEMATOCRIT 31.7 % (42.0-52.0); HEMOGLOBIN 11.2 g/dl (13.5-17.5); IMMATURE GRANULOCYTE % 0.8 % (0-3.0); LYMPH # 0.9 10^3/uL (1.5-4.5); LYMPH % 5.3 % (24.0-44.0); MEAN CORPUSCULAR HEMOGLOBIN 31.2 pg (27.0-33.0); MEAN CORPUSCULAR HGB CONC 35.3 g/dl (32.0-36.5); MEAN CORPUSCULAR VOLUME 88.3 fl (80.0-96.0); MONO % 15.5 % (0.0-5.0); NEUTROPHILS % 78.1 % (36.0-66.0); PLATELET COUNT, AUTOMATED 303 10^3/uL (150-450); RED BLOOD COUNT 3.59 10^6/uL (4.30-6.10); RED CELL DISTRIBUTION WIDTH 13.8 % (11.5-14.5); WHITE BLOOD COUNT 16.7 10^3/uL (4.0-10.0)
[2017-12-29 05:00] LABS: ALBUMIN 2.4 GM/DL (3.2-5.2); ALBUMIN/GLOBULIN RATIO 0.75 (1.00-1.93); ALKALINE PHOSPHATASE 164 U/L (45-117); ALT/SGPT 12 U/L (12-78); ANION GAP 8 MEQ/L (8-16); AST/SGOT 35 U/L (7-37); BILIRUBIN,TOTAL 0.2 MG/DL (0.2-1.0); BLOOD UREA NITROGEN 38 MG/DL (7-18); CALCIUM LEVEL 9.3 MG/DL (8.8-10.2); CARBON DIOXIDE LEVEL 29 MEQ/L (21-32); CHLORIDE LEVEL 85 MEQ/L (98-107); GLOMERULAR FILTRATION RATE > 60.0 (>35); GLUCOSE, FASTING 164 MG/DL (70-100); SODIUM LEVEL 122 MEQ/L (136-145); TOTAL PROTEIN 5.6 GM/DL (6.4-8.2)
[2017-12-29 05:21] LABS: MONO # 2.6 10^3/uL (0.0-0.8); POSITIVE DIFF POS FLAG
[2017-12-29] MEDS: ACETAMINOPHEN/CODEINE 300MG/30MG 12.5 ML UDC PEG (06:17)
[2017-12-29] MEDS: LEVOTHYROXINE 50MCG TABLET (0.05MG) GT (06:20)
[2017-12-29] MEDS: AZITHROMYCIN INJ 500 MG, VIAL MATE ADAPTER 1 EACH in D5W 250 ML IV (06:21)
[2017-12-29 07:45] LABS: ANION GAP 7 MEQ/L (8-16); BLOOD UREA NITROGEN 38 MG/DL (7-18); CALCIUM LEVEL 9.5 MG/DL (8.8-10.2); CARBON DIOXIDE LEVEL 28 MEQ/L (21-32); CHLORIDE LEVEL 85 MEQ/L (98-107); CREATININE FOR GFR 0.76 MG/DL (0.70-1.30); GLOMERULAR FILTRATION RATE > 60.0 (>35); GLUCOSE, FASTING 276 MG/DL (70-100); POTASSIUM SERUM 4.6 MEQ/L (3.5-5.1); SODIUM LEVEL 120 MEQ/L (136-145)
[2017-12-29] MEDS: LACTOBACILLUS PEG ×4 (08:00→18:01)
[2017-12-29] MEDS: PANTOPRAZOLE 40MG INJ (PROTONIX) (C9113) IV (08:15)
[2017-12-29] MEDS: APIXABAN 5 MG TAB (ELIQUIS) GT ×2 (08:18→20:22)
[2017-12-29] MEDS: [UNRECOGNIZED DRUG - OTHER] PEG (08:19)
[2017-12-29] MEDS: METOPROLOL TART 25 MG TABLET GT ×2 (08:19→20:23)
[2017-12-29] MEDS: guaiFENesin SYRUP 200 MG/10 ML UDC PO ×3 (08:19→20:23)
[2017-12-29] MEDS: TIOTROPIUM INHALER/CAPSULE (SPIRIVA) INH (09:00)
[2017-12-29] MEDS: IPRATROPIUM 0.5MG/ALBUTEROL 2.5MG INH SOL UD 3ML (DUONEB)(J7620) NEB (09:07)
[2017-12-29] MEDS: FUROSEMIDE 100 MG/10 ML VIAL (J1940) IV ×2 (09:45→16:49)
[2017-12-29 09:53] LABS: OSMOLALITY URINE 357 MOSM/KG (500-800)
[2017-12-29] MEDS: SODIUM CHLORIDE 1 GM TAB PO ×2 (10:33→20:23)
[2017-12-29 11:40] LABS: ANION GAP 7 MEQ/L (8-16); BLOOD UREA NITROGEN 38 MG/DL (7-18); CARBON DIOXIDE LEVEL 28 MEQ/L (21-32); CHLORIDE LEVEL 86 MEQ/L (98-107); CREATININE FOR GFR 0.65 MG/DL (0.70-1.30); GLOMERULAR FILTRATION RATE > 60.0 (>35); GLUCOSE, FASTING 201 MG/DL (70-100); POTASSIUM SERUM 4.5 MEQ/L (3.5-5.1); SODIUM LEVEL 121 MEQ/L (136-145)
[2017-12-29] MEDS: SODIUM CHLORIDE HYPERTONIC 3% 15ML NEB SOL INH ×3 (11:41→20:05)
[2017-12-29] MEDS: ALBUTEROL SULFATE 2.5 MG/0.5 ML INH NEB SOLN NEB ×3 (11:41→20:06)
[2017-12-29 15:22] LABS: ANION GAP 8 MEQ/L (8-16); BLOOD UREA NITROGEN 38 MG/DL (7-18); CALCIUM LEVEL 9.5 MG/DL (8.8-10.2); CARBON DIOXIDE LEVEL 29 MEQ/L (21-32); CHLORIDE LEVEL 86 MEQ/L (98-107); CREATININE FOR GFR 0.76 MG/DL (0.70-1.30); GLOMERULAR FILTRATION RATE > 60.0 (>35); GLUCOSE, FASTING 224 MG/DL (70-100); POTASSIUM SERUM 4.4 MEQ/L (3.5-5.1); SODIUM LEVEL 123 MEQ/L (136-145)
[2017-12-29 17:58] LABS: BEDSIDE GLUCOSE 296 MG/DL (83-110)
[2017-12-29] MEDS: HumaLOG INSULIN (NovoLOG) PER UNIT SC (18:00)
[2017-12-29 20:00] LABS: ANION GAP 8 MEQ/L (8-16); BLOOD UREA NITROGEN 41 MG/DL (7-18); CALCIUM LEVEL 9.3 MG/DL (8.8-10.2); CARBON DIOXIDE LEVEL 28 MEQ/L (21-32); CHLORIDE LEVEL 86 MEQ/L (98-107); CREATININE FOR GFR 0.67 MG/DL (0.70-1.30); GLOMERULAR FILTRATION RATE > 60.0 (>35); GLUCOSE, FASTING 248 MG/DL (70-100); POTASSIUM SERUM 4.3 MEQ/L (3.5-5.1); SODIUM LEVEL 122 MEQ/L (136-145)
[2017-12-29] MEDS: LATANOPROST 0.005% OPHTH SOLN 2.5 ML OU (20:23)
[2017-12-30 00:12] LABS: ANION GAP 6 MEQ/L (8-16); BLOOD UREA NITROGEN 40 MG/DL (7-18); CALCIUM LEVEL 9.5 MG/DL (8.8-10.2); CARBON DIOXIDE LEVEL 30 MEQ/L (21-32); CHLORIDE LEVEL 86 MEQ/L (98-107); CREATININE FOR GFR 0.69 MG/DL (0.70-1.30); GLOMERULAR FILTRATION RATE > 60.0 (>35); GLUCOSE, FASTING 272 MG/DL (70-100); POTASSIUM SERUM 4.5 MEQ/L (3.5-5.1); SODIUM LEVEL 122 MEQ/L (136-145)
[2017-12-30 00:40] LABS: BEDSIDE GLUCOSE 262 MG/DL (83-110)
[2017-12-30] MEDS: FUROSEMIDE 100 MG/10 ML VIAL (J1940) IV (00:46)
[2017-12-30] MEDS: SODIUM CHLORIDE 1 GM TAB PO ×3 (00:47→20:17)
[2017-12-30] MEDS: cefTRIAXone SOD 1 GM in D5W MINI-BAG PLUS 50 ML IV (02:00)
[2017-12-30 03:32] LABS: ANION GAP 7 MEQ/L (8-16); BLOOD UREA NITROGEN 43 MG/DL (7-18); CALCIUM LEVEL 9.3 MG/DL (8.8-10.2); CARBON DIOXIDE LEVEL 29 MEQ/L (21-32); CHLORIDE LEVEL 87 MEQ/L (98-107); CREATININE FOR GFR 0.74 MG/DL (0.70-1.30); GLOMERULAR FILTRATION RATE > 60.0 (>35); GLUCOSE, FASTING 289 MG/DL (70-100); POTASSIUM SERUM 4.5 MEQ/L (3.5-5.1); SODIUM LEVEL 123 MEQ/L (136-145)
[2017-12-30] MEDS: TOLVAPTAN 7.5 MG HALF-TAB PO ×2 (04:51→14:40)
[2017-12-30] MEDS ORDERED: SODIUM CHLORIDE 1 GM TAB PO (06:00)
[2017-12-30 06:28] LABS: BEDSIDE GLUCOSE 187 MG/DL (83-110)
[2017-12-30] MEDS ORDERED: AZITHROMYCIN INJ 500MG VIAL (J0456) As Ordered (06:29)
[2017-12-30] MEDS: AZITHROMYCIN INJ 500 MG, VIAL MATE ADAPTER 1 EACH in NS 250 ML IV (06:43)
[2017-12-30] MEDS: LEVOTHYROXINE 50MCG TABLET (0.05MG) GT (06:44)
[2017-12-30] MEDS: HumaLOG INSULIN (NovoLOG) PER UNIT SC ×5 (06:44→23:19)
[2017-12-30 07:05] LABS: BASO # 0.1 10^3/uL (0.0-0.2); BASO % 0.2 % (0.0-1.0); HEMATOCRIT 34.8 % (42.0-52.0); HEMOGLOBIN 12.3 g/dl (13.5-17.5); LYMPH # 0.7 10^3/uL (1.5-4.5); LYMPH % 2.3 % (24.0-44.0); MEAN CORPUSCULAR HEMOGLOBIN 31.6 pg (27.0-33.0); MEAN CORPUSCULAR HGB CONC 35.3 g/dl (32.0-36.5); MEAN CORPUSCULAR VOLUME 89.5 fl (80.0-96.0); MONO % 15.9 % (0.0-5.0); NEUTROPHILS # 24.2 10^3/uL (1.8-7.7); NEUTROPHILS % 80.6 % (36.0-66.0); PLATELET COUNT, AUTOMATED 309 10^3/uL (150-450); RED BLOOD COUNT 3.89 10^6/uL (4.30-6.10); RED CELL DISTRIBUTION WIDTH 14.1 % (11.5-14.5)
[2017-12-30 07:06] LABS: MONO # 4.8 10^3/uL (0.0-0.8); POSITIVE DIFF POS FLAG
[2017-12-30] MEDS: ALBUTEROL SULFATE 2.5 MG/0.5 ML INH NEB SOLN NEB ×4 (07:08→20:29)
[2017-12-30] MEDS: SODIUM CHLORIDE HYPERTONIC 3% 15ML NEB SOL INH ×4 (07:08→20:29)
[2017-12-30 07:28] LABS: ALBUMIN 2.4 GM/DL (3.2-5.2); ALBUMIN/GLOBULIN RATIO 0.73 (1.00-1.93); ALKALINE PHOSPHATASE 307 U/L (45-117); ALT/SGPT 15 U/L (12-78); ANION GAP 8 MEQ/L (8-16); AST/SGOT 82 U/L (7-37); BILIRUBIN,TOTAL 0.2 MG/DL (0.2-1.0); BLOOD UREA NITROGEN 41 MG/DL (7-18); C REACTIVE PROTEIN QUANTITATIV 4.09 MG/DL (0.00-0.30); CALCIUM LEVEL 9.8 MG/DL (8.8-10.2); CARBON DIOXIDE LEVEL 29 MEQ/L (21-32); CHLORIDE LEVEL 89 MEQ/L (98-107); CREATININE FOR GFR 0.67 MG/DL (0.70-1.30); GLOMERULAR FILTRATION RATE > 60.0 (>35); GLUCOSE, FASTING 167 MG/DL (70-100); POTASSIUM SERUM 4.9 MEQ/L (3.5-5.1); SODIUM LEVEL 126 MEQ/L (136-145); TOTAL PROTEIN 5.7 GM/DL (6.4-8.2)
[2017-12-30] MEDS: LACTOBACILLUS PEG ×3 (09:05→17:42)
[2017-12-30] MEDS: METOPROLOL TART 25 MG TABLET GT ×2 (09:06→20:18)
[2017-12-30] MEDS: guaiFENesin SYRUP 200 MG/10 ML UDC PO ×3 (09:06→20:18)
[2017-12-30] MEDS: APIXABAN 5 MG TAB (ELIQUIS) GT ×2 (09:07→20:17)
[2017-12-30] MEDS: PANTOPRAZOLE 40MG INJ (PROTONIX) (C9113) IV (09:07)
[2017-12-30] MEDS: [UNRECOGNIZED DRUG - OTHER] PEG (09:07)
[2017-12-30] MEDS ORDERED: ISOVUE-370 76% 100ML VIAL (Q9967) As Ordered (09:36)
[2017-12-30 11:35] LABS: OSMOLALITY URINE 367 MOSM/KG (500-800)
[2017-12-30 12:05] LABS: ANION GAP 8 MEQ/L (8-16); BLOOD UREA NITROGEN 41 MG/DL (7-18); CALCIUM LEVEL 9.8 MG/DL (8.8-10.2); CARBON DIOXIDE LEVEL 28 MEQ/L (21-32); CHLORIDE LEVEL 89 MEQ/L (98-107); CREATININE FOR GFR 0.71 MG/DL (0.70-1.30); GLOMERULAR FILTRATION RATE > 60.0 (>35); GLUCOSE, FASTING 188 MG/DL (70-100); SODIUM LEVEL 125 MEQ/L (136-145)
[2017-12-30 12:20] LABS: POTASSIUM SERUM 5.2 MEQ/L (3.5-5.1)
[2017-12-30] MEDS: PIPERACILLIN/TAZOBACTAM SOD 3.375 GM in D5W MINI-BAG PLUS 50 ML IV (12:35)
[2017-12-30 12:46] LABS: SLIDE REVIEW Report; SOURCE PERIPHERAL SMEAR
[2017-12-30 13:27] LABS: ABG BASE EXCESS 2.6 (-2.0-2.0); ABG HCO3 29.4 MEQ/L (22.0-26.0); ABG O2 SATURATION 81.7 % (95.0-99.0); ABG PARTIAL PRESSURE CO2 55.7 mmHg (35.0-45.0); ABG STANDARD HCO3 26.4 MEQ/L (22.0-26.0); ABG TOTAL CO2 31.2 MEQ/L (23.0-31.0); ABG pH (ARTERIAL) 7.341 UNITS (7.350-7.450)
[2017-12-30 13:31] LABS: ABG PARTIAL PRESSURE O2 45.5 mmHg (75.0-100.0)
[2017-12-30] MEDS: VANCOMYCIN HCL 1,000 MG, VIAL MATE ADAPTER 1 EACH in D5W 250 ML IV (14:01)
[2017-12-30] MEDS: VANCOMYCIN HCL 750 MG, VIAL MATE ADAPTER 1 EACH in D5W 250 ML IV (14:01)
[2017-12-30 15:42] LABS: ANION GAP 7 MEQ/L (8-16); BLOOD UREA NITROGEN 42 MG/DL (7-18); CALCIUM LEVEL 9.5 MG/DL (8.8-10.2); CARBON DIOXIDE LEVEL 30 MEQ/L (21-32); CHLORIDE LEVEL 87 MEQ/L (98-107); CREATININE FOR GFR 0.77 MG/DL (0.70-1.30); GLOMERULAR FILTRATION RATE > 60.0 (>35); GLUCOSE, FASTING 253 MG/DL (70-100); POTASSIUM SERUM 5.1 MEQ/L (3.5-5.1); SODIUM LEVEL 124 MEQ/L (136-145)
[2017-12-30 17:31] LABS: BEDSIDE GLUCOSE 201 MG/DL (83-110)
[2017-12-30] MEDS: LATANOPROST 0.005% OPHTH SOLN 2.5 ML OU (20:19)
[2017-12-30] MEDS: PIPERACILLIN/TAZOBACTAM SOD 3.375 GM in NS MINI-BAG PLUS 50 ML IV (20:19)
[2017-12-30 21:31] LABS: ANION GAP 8 MEQ/L (8-16); BLOOD UREA NITROGEN 44 MG/DL (7-18); CALCIUM LEVEL 9.8 MG/DL (8.8-10.2); CARBON DIOXIDE LEVEL 28 MEQ/L (21-32); CHLORIDE LEVEL 89 MEQ/L (98-107); CREATININE FOR GFR 0.84 MG/DL (0.70-1.30); GLOMERULAR FILTRATION RATE > 60.0 (>35); GLUCOSE, FASTING 232 MG/DL (70-100); POTASSIUM SERUM 5.1 MEQ/L (3.5-5.1); SODIUM LEVEL 125 MEQ/L (136-145)
[2017-12-30 23:07] LABS: ANION GAP 6 MEQ/L (8-16); BLOOD UREA NITROGEN 44 MG/DL (7-18); CALCIUM LEVEL 9.9 MG/DL (8.8-10.2); CARBON DIOXIDE LEVEL 30 MEQ/L (21-32); CHLORIDE LEVEL 89 MEQ/L (98-107); CREATININE FOR GFR 0.82 MG/DL (0.70-1.30); GLOMERULAR FILTRATION RATE > 60.0 (>35); GLUCOSE, FASTING 202 MG/DL (70-100); POTASSIUM SERUM 4.9 MEQ/L (3.5-5.1); SODIUM LEVEL 125 MEQ/L (136-145)
[2017-12-31] MEDS: SODIUM CHLORIDE 1 GM TAB PO ×2 (00:11→08:29)
[2017-12-31] MEDS: FUROSEMIDE 100 MG/10 ML VIAL (J1940) IV (00:11)
[2017-12-31 01:00] LABS: ABG BASE EXCESS 3.9 (-2.0-2.0); ABG HCO3 30.8 MEQ/L (22.0-26.0); ABG O2 SATURATION 87.6 % (95.0-99.0); ABG PARTIAL PRESSURE CO2 56.9 mmHg (35.0-45.0); ABG PARTIAL PRESSURE O2 50.7 mmHg (75.0-100.0); ABG STANDARD HCO3 27.7 MEQ/L (22.0-26.0); ABG TOTAL CO2 32.5 MEQ/L (23.0-31.0); ABG pH (ARTERIAL) 7.351 UNITS (7.350-7.450)
[2017-12-31] MEDS: VANCOMYCIN HCL 1,000 MG, VIAL MATE ADAPTER 1 EACH in NS 250 ML IV (02:48)
[2017-12-31 03:11] LABS: ANION GAP 7 MEQ/L (8-16); BLOOD UREA NITROGEN 47 MG/DL (7-18); CALCIUM LEVEL 10.3 MG/DL (8.8-10.2); CARBON DIOXIDE LEVEL 30 MEQ/L (21-32); CHLORIDE LEVEL 90 MEQ/L (98-107); CREATININE FOR GFR 0.86 MG/DL (0.70-1.30); GLOMERULAR FILTRATION RATE > 60.0 (>35); GLUCOSE, FASTING 136 MG/DL (70-100); POTASSIUM SERUM 5.1 MEQ/L (3.5-5.1); SODIUM LEVEL 127 MEQ/L (136-145)
[2017-12-31] MEDS: PIPERACILLIN/TAZOBACTAM SOD 3.375 GM in NS MINI-BAG PLUS 50 ML IV ×2 (04:14→13:00)
[2017-12-31 06:05] LABS: BEDSIDE GLUCOSE 156 MG/DL (83-110)
[2017-12-31] MEDS: LEVOTHYROXINE 50MCG TABLET (0.05MG) GT (06:10)
[2017-12-31] MEDS: HumaLOG INSULIN (NovoLOG) PER UNIT SC ×2 (06:11→12:00)
[2017-12-31 07:08] LABS: OSMOLALITY URINE 311 MOSM/KG (500-800)
[2017-12-31] MEDS: ALBUTEROL SULFATE 2.5 MG/0.5 ML INH NEB SOLN NEB ×2 (07:12→11:44)
[2017-12-31] MEDS: SODIUM CHLORIDE HYPERTONIC 3% 15ML NEB SOL INH ×2 (07:12→11:44)
[2017-12-31 07:52] LABS: BASO # 0.1 10^3/uL (0.0-0.2); BASO % 0.1 % (0.0-1.0); HEMOGLOBIN 11.6 g/dl (13.5-17.5); IMMATURE GRANULOCYTE % 0.9 % (0-3.0); LYMPH # 0.7 10^3/uL (1.5-4.5); LYMPH % 1.6 % (24.0-44.0); MEAN CORPUSCULAR HEMOGLOBIN 31.2 pg (27.0-33.0); MEAN CORPUSCULAR HGB CONC 34.1 g/dl (32.0-36.5); MEAN CORPUSCULAR VOLUME 91.4 fl (80.0-96.0); MONO % 9.7 % (0.0-5.0); NEUTROPHILS % 87.7 % (36.0-66.0); PLATELET COUNT, AUTOMATED 302 10^3/uL (150-450); RED BLOOD COUNT 3.72 10^6/uL (4.30-6.10); RED CELL DISTRIBUTION WIDTH 14.2 % (11.5-14.5)
[2017-12-31 08:18] LABS: MONO # 4.1 10^3/uL (0.0-0.8); POS COUNT POS FLAG; POSITIVE DIFF POS FLAG; WHITE BLOOD COUNT 42.3 10^3/uL (4.0-10.0)
[2017-12-31 08:29] LABS: ALBUMIN 2.2 GM/DL (3.2-5.2); ALBUMIN/GLOBULIN RATIO 0.56 (1.00-1.93); ALKALINE PHOSPHATASE 252 U/L (45-117); ALT/SGPT 12 U/L (12-78); ANION GAP 5 MEQ/L (8-16); AST/SGOT 71 U/L (7-37); BILIRUBIN,TOTAL 0.2 MG/DL (0.2-1.0); BLOOD UREA NITROGEN 49 MG/DL (7-18); CALCIUM LEVEL 10.5 MG/DL (8.8-10.2); CARBON DIOXIDE LEVEL 30 MEQ/L (21-32); CHLORIDE LEVEL 92 MEQ/L (98-107); CREATININE FOR GFR 0.92 MG/DL (0.70-1.30); GLOMERULAR FILTRATION RATE > 60.0 (>35); GLUCOSE, FASTING 154 MG/DL (70-100); POTASSIUM SERUM 4.9 MEQ/L (3.5-5.1); SODIUM LEVEL 127 MEQ/L (136-145); TOTAL PROTEIN 6.1 GM/DL (6.4-8.2)
[2017-12-31] MEDS: METOPROLOL TART 25 MG TABLET GT (08:29)
[2017-12-31] MEDS: PANTOPRAZOLE 40MG INJ (PROTONIX) (C9113) IV (08:29)
[2017-12-31] MEDS: guaiFENesin SYRUP 200 MG/10 ML UDC PO (08:29)
[2017-12-31] MEDS: APIXABAN 5 MG TAB (ELIQUIS) GT (08:29)
[2017-12-31] MEDS: [UNRECOGNIZED DRUG - OTHER] PEG ×2 (08:30→08:33)
[2017-12-31] MEDS: LACTOBACILLUS PEG ×2 (08:30→12:30)
[2017-12-31] MEDS ORDERED: LORazepam 1 MG TAB PO (12:45)
[2017-12-31] MEDS ORDERED: HYOSCYAMINE SULFATE 0.125 MG SUBL TABLET SL (12:45)
[2017-12-31] MEDS: MORPHINE 10MG/0.5ML ORAL CONCENTRATE SOLUTION U/D SL (13:26)
== END 2017-12-31 13:50 | disposition home or self-care (01) | DRG 177 ==
LOC: M ED 23:38 → M ED INP 12-28 03:24 → M ICU 12-28 07:17
DX: J69.0 Pneumonitis due to inhalation of food and vomit (principal); J96.01 Acute respiratory failure with hypoxia; A41.9 Sepsis, unspecified organism; I69.351 Hemiplegia and hemiparesis following cerebral infarction affecting right dominant side; N39.0 Urinary tract infection, site not specified; E22.2 Syndrome of inappropriate secretion of antidiuretic hormone; C79.51 Secondary malignant neoplasm of bone; I69.391 Dysphagia following cerebral infarction; I48.2 Chronic atrial fibrillation; Z51.5 Encounter for palliative care; Z66 Do not resuscitate; B96.4 Proteus (mirabilis) (morganii) as the cause of diseases classified elsewhere; E11.9 Type 2 diabetes mellitus without complications; E03.9 Hypothyroidism, unspecified; H40.9 Unspecified glaucoma; F32.9 Major depressive disorder, single episode, unspecified; E87.5 Hyperkalemia; J44.9 Chronic obstructive pulmonary disease, unspecified; G47.33 Obstructive sleep apnea (adult) (pediatric); R32 Unspecified urinary incontinence; I50.9 Heart failure, unspecified; I11.0 Hypertensive heart disease with heart failure; I69.320 Aphasia following cerebral infarction; I27.20 Pulmonary hypertension, unspecified; N20.0 Calculus of kidney; I36.1 Nonrheumatic tricuspid (valve) insufficiency; Z93.1 Gastrostomy status; Z87.891 Personal history of nicotine dependence; Z99.81 Dependence on supplemental oxygen; Z79.01 Long term (current) use of anticoagulants; Z79.899 Other long term (current) drug therapy; Z85.46 Personal history of malignant neoplasm of prostate; Z92.3 Personal history of irradiation; Z99.3 Dependence on wheelchair